=== PATIENT | female | born 1935 | race Caucasian/White ===

== ENCOUNTER 2019-05-19 21:24 | Inpatient (IN) | payer MEDICARE, BC ==
[~2019-05-19] VITALS: Ht 160 cm; Wt 92.0 kg
[2019-05-19 22:10] LABS: BASOPHILS 0.1 % (0-2); EOSINOPHILS 0.9 % (0-7); HEMATOCRIT 32.1 % (36.0-48.0); HEMOGLOBIN 9.7 g/dL (12-16); IMMATURE GRANULOCYTES 0.9 % (0-5); LYMPHOCYTES 10.7 % (15-50); MCH 26.4 pg (26.0-34.0); MCHC 30.2 g/dL (31.0-37.0); MCV 87.5 fL (80.0-100.0); MEAN PLATELET VOLUME 8.3 fL (7.4-10.4); MONOCYTES 7.6 % (2-11); NEUTROPHILS 79.8 % (40-80); PLATELET COUNT 454 10x3/uL (130-400); RBC 3.67 10x6/uL (4.00-5.40); RDW 16.8 % (11.5-14.5); WBC 17.5 10x3/uL (4.8-10.8)
[2019-05-19 22:25] LABS: APTT 29.9 SECONDS (22.8-39.4)
[2019-05-19 22:29] LABS: CALC OSMOLALITY 276 mosm/kg (275-300); CALCIUM 8.8 mg/dL (8.5-10.1); CARBON DIOXIDE 33.5 mmol/L (21.0-32.0); CHLORIDE - SERUM 97 mmol/L (98-107); CREATININE - SERUM 1.6 mg/dL (0.6-1.3); GLUCOSE 104 mg/dL (74-106); POTASSIUM - SERUM 4.3 mmol/L (3.5-5.1); SODIUM 135 mmol/L (136-145); UREA NITROGEN 32 mg/dL (7-18); eGFR NON AFRICAN AMERICAN 32 mL/min (90-120)
[2019-05-19 22:32] LABS: INR 1.01 (0.85-1.17); PROTIME 13.3 SECONDS (11.6-15.0)
[2019-05-19 22:38] LABS: BACTERIA MODERATE /hpf (NEGATIVE); BILIRUBIN NEGATIVE (NEGATIVE); GLUCOSE NEGATIVE (NEGATIVE); KETONE NEGATIVE (NEGATIVE); NITRITE NEGATIVE (NEGATIVE); UROBILINOGEN NORMAL (NORMAL); WHITE CELLS - URINE >50 /hpf (NEGATIVE)
[2019-05-19 22:48] LABS: ALBUMIN 1.5 g/dL (3.4-5.0); ALKALINE PHOSPHATASE 156 U/L (30-120); ALT (SGPT) 52 U/L (10-68); BILIRUBIN - TOTAL 0.26 mg/dL (0.2-1.3); CKMB 0.6 U/L (0.0-3.6); CREATINE KINASE 34 UL (21-215); PROTEIN - SERUM 6.4 g/dL (6.4-8.2)
[2019-05-19 22:51] LABS: TROPONIN-I < 0.017 ng/mL (0.000-0.060)
[2019-05-19] MEDS ORDERED: SYNTHROID25 MCG PO (23:51)
[2019-05-20 00:25] VITALS: BMI 32.4
[2019-05-20 00:26] VITALS: BP 124/67
[2019-05-20 06:00] VITALS: BP 107/47
--- NOTE | 2019-05-20 07:15 | NUR ---
REPORT RECEIVED FROM FLOWER GRADER AND PATIENT CARE ASSUMED. PATIENT LAYING IN BED ON BACK WITH EYES CLOSED AND BREATHING EVENLY. DTR AND SON IN LAW AT BS. DTR STATED THAT SHE IS REALLY GROGGY AND HARD TO WAKE UP. DTR STATES THAT PATIENT WAS AWAKE, ALERT AND ORIENTED LAST PM. ATTEMPTED AT AROUSE PATIENT TO VOICE AND TO STERNAL RUB WITHOUT RESULTS. PULSE OX 78% ON O2 2L NC. INCREASED TO 4L. CALLED RAPID RESPONSE. RESPONSE TEAM IN ROOM WITH IN 30 - 60 SECS. RESPIRATORY ABDULAZIZ ABG'S. DR DOYLE CALLED HE IN BUILDING AND CAME TO ROOM. ORDERED CT HEAD, CXR AND NARCAN INJ. DR DOYLE RECOMMENDED ICU TRANSFER BUT AFTER SPEAKING WITH FAMILY PATIENT IS A MEDICAL CODE ONLY. NARCAN INJ GIVEN IV WITH OUT ANY RESULTS. VSS. PATIENT OS SAT AT 97% ON [address] WILL CONTINUE TO MONITOR. SR UP X 2 BED IN LOW POSITION AND CALL LIGHT IN REACH.
[2019-05-20 07:25] LABS: BASOPHILS 0.1 % (0-2); EOSINOPHILS 1.1 % (0-7); HEMATOCRIT 30.7 % (36.0-48.0); HEMOGLOBIN 9.2 g/dL (12-16); IMMATURE GRANULOCYTES 0.9 % (0-5); LYMPHOCYTES 7.9 % (15-50); MCH 26.4 pg (26.0-34.0); MEAN PLATELET VOLUME 8.5 fL (7.4-10.4); PLATELET COUNT 465 10x3/uL (130-400); RBC 3.49 10x6/uL (4.00-5.40); RDW 17.2 % (11.5-14.5); WBC 16.9 10x3/uL (4.8-10.8)
[2019-05-20 07:32] LABS: ALBUMIN 1.4 g/dL (3.4-5.0); ANION GAP 7.9 mmol/L (8-16); BILIRUBIN - TOTAL 0.18 mg/dL (0.2-1.3); CALCIUM 8.6 mg/dL (8.5-10.1); CARBON DIOXIDE 32.9 mmol/L (21.0-32.0); CREATININE - SERUM 1.6 mg/dL (0.6-1.3); MAGNESIUM - SERUM 2.7 mg/dL (1.8-2.4); PHOSPHOROUS 4.4 mg/dL (2.5-4.9); POTASSIUM - SERUM 4.8 mmol/L (3.5-5.1)
--- NOTE | 2019-05-20 09:30 | NUR ---
PATIENT CONTINUES TO BE SOMNOLENT . AROUSE TO STERNAL RUB MINIMALLY. VSS. O2 SAT 95% @2LNC. AWAINTING CT RESULTS. WILL CONTINUE TO MONTIOR. SR UP X 2 BED IN LOW POSITION AND CALL LIGHT IN REACH.
--- NOTE | 2019-05-20 10:35 | NUR ---
DR FLORES IN ROOM. PATIENT MINIMALLY AROUSES TO VOICE. DR ANTOINE INFORMED FAMILY THAT SHE WILL REVIEW PATIENT RECORD AND RESULTS THEN MAKE ANY NECESSARY ORDERS OR TMTS.
[2019-05-20 11:29] VITALS: BP 127/72
[2019-05-20 12:37] LABS: T4 THYROXIN - FREE 0.57 ng/dL (0.76-1.46); THYROID STIMULATING HORMONE 28.69 uIU/mL (0.36-3.74)
--- NOTE | 2019-05-20 13:15 | NUR ---
PATIENT AROUSES TO VOICE AND STATES THAT SHE IS THIRSTY. PATIENT GIVEN WATER AND SWALLOWS EASILY. PATIENT STATES NOT HUNGRY. WILL CONTINUE TO MONITOR.
--- NOTE | 2019-05-20 14:45 | NUR ---
PATIENT AROUSE TO VOICE AND ASKS FOR WATER. PATIENT DENIES ANY NEEDS OR PAIN. VSS. DTR AT BS. WILL CONTINUE TO MONTIOR.
--- NOTE | 2019-05-20 15:13 | NUR ---
UNABLE TO COLLECT SPUTUM SPECIMEN. PATIENT HAVING RARE, NON-PRODUCTIVE COUGH.
[2019-05-20 15:19] VITALS: BP 117/70
--- NOTE | 2019-05-20 16:25 | NUR ---
PATIENT AROUSES TO VOICE AND OPENS EYES EASILY. PATIENT DENIES ANY PAIN OR NEEDS . VITAL SIGNS STABLE. PATIENT STATES THAT SHE IS NOT HNGRY AND WANTS TO SLEEP. WILL CONTINUE TO MONTITOR. SR UPX 2 BED IN LOW POSITION AND CALL LIGHT IN REACH.
--- NOTE | 2019-05-20 17:15 | NUR ---
PATIENT AROUSES TO VOICE AND OPENS EYES. PATIENT STATES HER FULL NAME IN CLEAR SPEECH. PATIENT ORIENTED TO NAME ONLY. PATIENT STATED THAT THIS NURSES VOICE IS TOO SQEEKY WHEN QUESTIONED IF HUNGRY PATIENT DENIES HUNGER. PATIENT DENIES ANY NEEDS OR PAIN. FAMILY IN ROOM. WILL CONTINUE TO [facility]. SR UPX 2 BED IN LOW POSITION AND CALL LIGHT IN REACH.
--- NOTE | 2019-05-20 17:20 | NUR ---
DR FLORES IN ROOM. INFORMED PATIENT FAMILY THAT SHE WILL REVIEW CT RESULTS AND OTHER RECORDS AND MAY ANY NECESSARY ORDERS OR TREATMENTS.
--- NOTE | 2019-05-20 18:04 | NUR ---
ENTERED PATIENTS ROOM. PATIENT EYES OPEN , PT VERBAL WITH CLEAR SPEECH. PATIENT HAD EATEN ABOUT 25% OF DINNER. PATIENT IS STABLE AND VSS. PATIENT DENIES ANY NEEDS OR PAIN. WILL CONTINUE TO MONITOR. SR UP X 2 BED IN LOW POSITION AND CALL LIGHT IN REACH.
[2019-05-20 20:00] VITALS: BP 106/68
[2019-05-21] VITALS: BP 100/51
--- NOTE | 2019-05-21 02:54 | NUR ---
RT AT BED SIDE, PT REFUSES TO WEAR BIPAP.
[2019-05-21 04:00] VITALS: BP 121/63
[2019-05-21 06:18] LABS: BASOPHILS 0.1 % (0-2); EOSINOPHILS 1.7 % (0-7); HEMATOCRIT 31.8 % (36.0-48.0); HEMOGLOBIN 9.5 g/dL (12-16); IMMATURE GRANULOCYTES 0.8 % (0-5); LYMPHOCYTES 7.9 % (15-50); MCH 26.5 pg (26.0-34.0); MCHC 29.9 g/dL (31.0-37.0); MCV 88.6 fL (80.0-100.0); MEAN PLATELET VOLUME 8.4 fL (7.4-10.4); MONOCYTES 8.4 % (2-11); NEUTROPHILS 81.1 % (40-80); PLATELET COUNT 446 10x3/uL (130-400); RBC 3.59 10x6/uL (4.00-5.40); RDW 17.2 % (11.5-14.5); WBC 18.5 10x3/uL (4.8-10.8)
[2019-05-21 06:41] LABS: % SATURATION 17 % (15-55); IRON 16 ug/dl (35-150); TOTAL IRON BIND CAPACITY 92 ug/dl (260-445); UNSAT IRON BIND CAPACITY 76 ug/dl (150-375)
[2019-05-21 06:50] LABS: ANION GAP 7.7 mmol/L (8-16); CALCIUM 8.6 mg/dL (8.5-10.1); CARBON DIOXIDE 33.1 mmol/L (21.0-32.0); CREATININE - SERUM 1.4 mg/dL (0.6-1.3); MAGNESIUM - SERUM 2.7 mg/dL (1.8-2.4); PHOSPHOROUS 3.4 mg/dL (2.5-4.9); POTASSIUM - SERUM 4.8 mmol/L (3.5-5.1)
--- NOTE | 2019-05-21 07:30 | NUR ---
PT LAYING SUPINE, RR EVEN AND UNLABORED. EASILY AROUSES TO VERBAL STIMULI. DENIES NEEDS OR PAIN AT THIS TIME. CALL LIGHT WITHIN REACH. BED IN LOWEST POSITION. WILL CONTINUE TO MONITOR.
[2019-05-21 10:00] VITALS: BP 116/65
[2019-05-21 13:43] VITALS: Ht 160 cm; Wt 92.0 kg
[2019-05-21 14:04] VITALS: BP 113/57
--- NOTE | 2019-05-21 16:36 | NUR ---
EDUCATED PT ON BIPAP AND DISCUSSED THAT DOCTOR HAD ORDERED ONE FOR SOB AND QHS PT REFUSED, STATING SHE DOES NOT NEED ONE, FAMILY AT BEDSIDE
[2019-05-21 18:03] VITALS: BP 124/67
--- NOTE | 2019-05-21 19:45 | NUR ---
REPORT RECIEVED AND ROUNDING COMPLETE. PATIENT LAYING, IN LOW FOWLERS. PATIENT HAS DAUGHTER AND SON AT BEDSIDE. PATIENT HAS A RIGHT HAND PIV THAT IS RUNNING FLUIDS AT THIS TIME. PIV SHOWS NO S/SX OF INFILTRATION. WEARING NASAL CANNULA WITH O2 AT 3L. PATIENT SHOWS NO S/SX OF DISTRESS AT THIS TIME. CALL LIGHT WITHIN REACH AND BED IN LOWEST LOCKED POSITION.
[2019-05-21 20:30] VITALS: BP 125/65
[2019-05-22 00:30] VITALS: BP 100/63
[2019-05-22 04:30] VITALS: BP 111/60
[2019-05-22 05:32] LABS: BASOPHILS 0.1 % (0-2); EOSINOPHILS 1.1 % (0-7); HEMATOCRIT 31.1 % (36.0-48.0); HEMOGLOBIN 9.2 g/dL (12-16); IMMATURE GRANULOCYTES 0.8 % (0-5); LYMPHOCYTES 8.6 % (15-50); MCH 26.6 pg (26.0-34.0); MCHC 29.6 g/dL (31.0-37.0); MCV 89.9 fL (80.0-100.0); MEAN PLATELET VOLUME 8.5 fL (7.4-10.4); MONOCYTES 8.3 % (2-11); NEUTROPHILS 81.1 % (40-80); PLATELET COUNT 428 10x3/uL (130-400); RBC 3.46 10x6/uL (4.00-5.40); RDW 17.3 % (11.5-14.5); WBC 17.5 10x3/uL (4.8-10.8)
[2019-05-22 05:56] LABS: ANION GAP 6.9 mmol/L (8-16); CALCIUM 8.2 mg/dL (8.5-10.1); CARBON DIOXIDE 32.8 mmol/L (21.0-32.0); CREATININE - SERUM 1.2 mg/dL (0.6-1.3); MAGNESIUM - SERUM 2.6 mg/dL (1.8-2.4); PHOSPHOROUS 3.1 mg/dL (2.5-4.9); POTASSIUM - SERUM 4.7 mmol/L (3.5-5.1)
--- NOTE | 2019-05-22 07:15 | NUR ---
ASSESSMENT DONE. DENIES NEEDS
[2019-05-22 10:46] VITALS: BP 108/60
[2019-05-22 12:09] LABS: ANA REFLEX - DIRECT Negative (Negative)
--- NOTE | 2019-05-22 16:09 | NUR ---
I CONCUR WITH WIND FARM DESIGNER ASSESSMENT OF THIS PATIENT
--- NOTE | 2019-05-22 19:30 | NUR ---
PATIENT LAYING IN BED, SON AND DAUGHTER AT BEDSIDE. BREATHING LABORED AND SHALLOW. PATIENT IS VERY SWOLLEN EVERYWHERE. PATIENT HAS A RIGHT HAND PIV THAT LOOKS TO BE INFILTRATED, WHILE FLUSHING FLUSHING PATIENT COMLAINED OF BURNING. WEARING NASAL CANNULA WITH O2 AT 3L. NO NEEDS AT THIS TIME. WILL TRY FOR PIV. CALL LIGHT WITHIN REACH AND BED IN LOWEST LOCKED POSITION.
[2019-05-22 20:00] VITALS: BP 113/48
--- NOTE | 2019-05-22 22:24 | NUR ---
IV STARTED #22 TO L HAND WITH ATTEMPT X1. PT TOLERATED ACTIVITY WELL.
[2019-05-23] VITALS: BP 111/57
[2019-05-23 04:00] VITALS: BP 109/58
--- NOTE | 2019-05-23 04:14 | NUR ---
I have reviewed this patient and I concur with the Shift Assessment completed by the Licensed Practical Nurse today this shift.
[2019-05-23 06:12] LABS: BASOPHILS 0.1 % (0-2); HEMATOCRIT 30.8 % (36.0-48.0); IMMATURE GRANULOCYTES 1.3 % (0-5); LYMPHOCYTES 8.1 % (15-50); MCH 26.2 pg (26.0-34.0); MCHC 29.2 g/dL (31.0-37.0); MCV 89.8 fL (80.0-100.0); MEAN PLATELET VOLUME 8.7 fL (7.4-10.4); MONOCYTES 7.9 % (2-11); NEUTROPHILS 81.6 % (40-80); PLATELET COUNT 437 10x3/uL (130-400); RBC 3.43 10x6/uL (4.00-5.40); RDW 17.6 % (11.5-14.5); WBC 16.9 10x3/uL (4.8-10.8)
[2019-05-23 06:37] LABS: CALCIUM 8.4 mg/dL (8.5-10.1); CARBON DIOXIDE 31.3 mmol/L (21.0-32.0); CREATININE - SERUM 1.3 mg/dL (0.6-1.3); MAGNESIUM - SERUM 2.6 mg/dL (1.8-2.4); PHOSPHOROUS 2.6 mg/dL (2.5-4.9); POTASSIUM - SERUM 4.3 mmol/L (3.5-5.1)
--- NOTE | 2019-05-23 07:13 | NUR ---
ASSESSMENT DONE. DENIES NEEDS. FAMILY AT SIDE.
--- NOTE | 2019-05-23 17:20 | NUR ---
WITHOUT CHANGES OR DISTRESS NOTED AT THIS TIME. DENIES NEEDS
--- NOTE | 2019-05-23 18:49 | NUR ---
I have reviewed this patient and I concur with the Shift Assessment completed by the Licensed Practical Nurse today this shift.
--- NOTE | 2019-05-23 19:30 | NUR ---
REPORT RECIEVED AND INITIAL ROUNDS COMPLETED. PT RESTING IN BED WITH FAMILY AT BEDSIDE X 2. O2 @ 4L/NC, JUST COMPLETED BREATHING TREATMENT. IV TO RIGHT AND LEFT HAND. DALEY TO BEDSIDE DRAIN BAG. IVF DECREASED TO KVO AT THIS TIME DUE TO DIFFUSE EDEMA. CPOC. PT ROUSABLE/ALERT AND ANSWERS QUESTIONS WHEN ASKED.
[2019-05-23 20:00] VITALS: BP 113/62
[2019-05-24] VITALS: BP 111/70
--- NOTE | 2019-05-24 01:16 | NUR ---
RESTING IN BED WITH NO DISTRESS. FAMILY X 2 AT BEDSIDE. CPOC.
[2019-05-24 04:00] VITALS: BP 119/68
[2019-05-24 05:57] LABS: BASOPHILS 0.2 % (0-2); EOSINOPHILS 1.3 % (0-7); HEMATOCRIT 30.8 % (36.0-48.0); HEMOGLOBIN 9.1 g/dL (12-16); LYMPHOCYTES 8.6 % (15-50); MCH 26.6 pg (26.0-34.0); MCHC 29.5 g/dL (31.0-37.0); MCV 90.1 fL (80.0-100.0); MEAN PLATELET VOLUME 8.5 fL (7.4-10.4); NEUTROPHILS 78.9 % (40-80); PLATELET COUNT 480 10x3/uL (130-400); RBC 3.42 10x6/uL (4.00-5.40); RDW 17.7 % (11.5-14.5); WBC 19.5 10x3/uL (4.8-10.8)
[2019-05-24 06:11] LABS: ANION GAP 8.4 mmol/L (8-16); CALCIUM 8.4 mg/dL (8.5-10.1); CARBON DIOXIDE 32.1 mmol/L (21.0-32.0); CREATININE - SERUM 1.2 mg/dL (0.6-1.3); MAGNESIUM - SERUM 2.6 mg/dL (1.8-2.4); PHOSPHOROUS 3.1 mg/dL (2.5-4.9); POTASSIUM - SERUM 4.5 mmol/L (3.5-5.1)
[2019-05-24 07:30] VITALS: BP 112/54
--- NOTE | 2019-05-24 08:00 | NUR ---
PT A/O X4 BUT CONFUSED AT TIMES. PT BREATHING SHALLOW AND LUNG SOUNDS WET. ANDERSON SANTOYO NOTIFIED WELL . NEW ORDERS ESTABLISHED. BED LOW CALL LIGHT WITHIN REACH. FAMILY AT BEDSIDE. WILL CONTINUE TO MOONITOR. 0900- PT REFUSING TO WEAR O2 OR BIPAP. PT STATES, "IM READY TO DO, LEAVE ME ALONE." DR. STALEY NOTIFIED AND SPOKE WITH PT. AND FAMILY. REFER TO CHART. BED LOW CALL LIGHT WITHIN REACH. WILL CONTINUE TO MONITOR.
--- NOTE | 2019-05-24 14:22 | NUR ---
PT AGREED TO WEAR O2 AT THIS TIME. FAMILY AT BEDSIDE. BED LOW CALL LIGHT WITHIN REACH. WILL CONTINUE TO MONITOR.
[2019-05-24 15:30] VITALS: BP 128/68
--- NOTE | 2019-05-24 15:30 | NUR ---
PT REFUSED TO WEAR BIPAP NURSE PLACED O2 VIA CANNULA..SPO2 95 @ 4LPM ON DEPARTURE....PT RECEIVED DUONEB VIA MASK WITH NO ADVERSE REACTIONS
--- NOTE | 2019-05-24 17:57 | NUR ---
I have reviewed this patient and I concur with the Shift Assessment completed by the Licensed Practical Nurse today this shift.
--- NOTE | 2019-05-24 19:15 | NUR ---
RECEIVED REPORT, WILL ASSUME CARE OF PT, RECEIVING BREATHING TREATMENT AT THIS TIME, DENIES ANY NEEDS, SON AT BEDSIDE, BED IS LOW, SRX3, CALL LIGHT IN REACH, WILL CONTINUE PLAN OF CARE
[2019-05-25 00:01] VITALS: BP 114/63
[2019-05-25 03:06] LABS: IMMUNOGLOBULIN E 51 IU/mL (6-495)
[2019-05-25 05:40] LABS: BASOPHILS 0.1 % (0-2); EOSINOPHILS 1.1 % (0-7); HEMATOCRIT 31.1 % (36.0-48.0); HEMOGLOBIN 9.2 g/dL (12-16); IMMATURE GRANULOCYTES 2.4 % (0-5); LYMPHOCYTES 9.7 % (15-50); MCH 26.6 pg (26.0-34.0); MCHC 29.6 g/dL (31.0-37.0); MCV 89.9 fL (80.0-100.0); MEAN PLATELET VOLUME 8.4 fL (7.4-10.4); MONOCYTES 7.6 % (2-11); NEUTROPHILS 79.1 % (40-80); PLATELET COUNT 391 10x3/uL (130-400); RBC 3.46 10x6/uL (4.00-5.40); RDW 17.8 % (11.5-14.5); WBC 19.1 10x3/uL (4.8-10.8)
[2019-05-25 07:00] LABS: ANION GAP 6.3 mmol/L (8-16); CALCIUM 8.6 mg/dL (8.5-10.1); CARBON DIOXIDE 32.9 mmol/L (21.0-32.0); MAGNESIUM - SERUM 2.5 mg/dL (1.8-2.4); PHOSPHOROUS 3.1 mg/dL (2.5-4.9); POTASSIUM - SERUM 4.2 mmol/L (3.5-5.1)
[2019-05-25 07:08] LABS: CREATININE - SERUM 1.6 mg/dL (0.6-1.3)
--- NOTE | 2019-05-25 07:10 | NUR ---
PT RECEIVED LAYING IN BED SLEEPING. AROUSED TO TOUCH BUT BACK TO SLEEP EASILY. UNABLE TO ASSESS ORIENTATION.
[2019-05-25 09:52] VITALS: BP 121/59
[2019-05-25 12:32] LABS: BILIRUBIN NEGATIVE (NEGATIVE); GLUCOSE NEGATIVE (NEGATIVE); KETONE NEGATIVE (NEGATIVE); NITRITE NEGATIVE (NEGATIVE); RED CELLS - URINE RARE /hpf (0-5); UROBILINOGEN NORMAL (NORMAL); WHITE CELLS - URINE OCC /hpf (NEGATIVE)
[2019-05-25 12:33] LABS: AMORPHOUS SEDIMENT <1+ /lpf (NONE SEEN); BACTERIA FEW /hpf (NEGATIVE); EPITHELIAL CELLS RARE /hpf (0-5); GRANULAR CAST OCC /lpf (NONE SEEN)
[2019-05-25 13:58] VITALS: BP 111/67
--- NOTE | 2019-05-25 14:26 | NUR ---
Nutrition Follow-up: Pt sleeping soundly at time of visit this AM and would not wake with family's prompting. Family reports she ate poorly this AM. Noted hospice consult. Diet: Cardiac, Boost TID PO intake: 25-50% Wt: 200# (05/23); 198.4# (05/20) Labs noted: Mg 2.5 Meds noted: Protonix, NS @ 30 -Encourage PO intake and honor food preferences within diet restrictions. -Monitor wt; noted daily wts ordered. -RD following.
--- NOTE | 2019-05-25 15:15 | MORECARE ---
CASE MANAGEMENT DISCHARGE SUMMARY PATIENT: ALEXANDRO TOMLINSON UNIT: [id number] ADM DATE: 05/19/19 AGE: 83 : 34 SEX: F ROOM/BED: D.2128 AUTHOR: JIM RITCHIE PHYSICIAN: REFERRING PHYSICIAN: KI DOYLE MD DATE OF SERVICE: 05/25/19 Discharge Plan Patient Name: ALEXANDRO TOMLINSON Facility: [facility] : 1935 Planned Disposition: Inpatient Rehab Anticipated Discharge Date: Discharge Date: Expected LOS: Initial Reviewer: [id number] Initial Review Date: 05/25/2019 Generated: 05/25/19 4:14 pm Patient Name: ALEXANDRO TOMLINSON Page [phone] at 1515 All edits/amendments must be made on the electronic document DICTATION DATE: 05/25/19 1514 ENGRAVER SEALS: GAMALIEL 05/25/19 1514 RPT#: [id number] DC DATE: STATUS: ADM IN [facility] [address] [place] [address] END OF REPORT
--- NOTE | 2019-05-25 15:27 | MORECARE ---
CASE MANAGEMENT DISCHARGE SUMMARY PATIENT: ALEXANDRO TOMLINSON UNIT: [id number] ADM DATE: 05/19/19 AGE: 83 : 34 SEX: F ROOM/BED: D.6512 AUTHOR: JIM RITCHIE PHYSICIAN: REFERRING PHYSICIAN: KI DOYLE MD DATE OF SERVICE: 05/25/19 Discharge Plan Patient Name: ALEXANDRO TOMLINSON Facility: [facility]:[place] : 1935 Planned Disposition: Inpatient Rehab Anticipated Discharge Date: Discharge Date: Expected LOS: Initial Reviewer: [email or web address] Initial Review Date: 05/25/2019 Generated: 05/25/19 4:27 pm Comments DCP- Discharge Planning Updated by [email or web address]: Roscoe Rivera on 05/25/19 2:[address] Patient Name: ALEXANDRO TOMLINSON Admission Status: ER Accout number: [id number] Admission Date: 05-19-2019 : 1935 Admission Diagnosis: Attending: KATIE DOYLE Current LOS: 6 Anticipated DC Date: Planned Disposition: Inpatient Rehab Primary Insurance: MEDICARE A & B PLANNED EXTERNAL PROVIDER: [place] [facility] Discharge Planning Comments: CM RECEIVED HOSPICE ORDER, MET WITH PT AND DAUGHTER IN ROOM TO DISCUSS DISCHARGE PLANNING AND NEEDS. PT HAVING BOWEL MOVEMENT, DAUGHTER ASKED TO SPEAK OUTSIDE ROOM. PT HAS BEEN LIVING AT HOME INDEPENDENTLY AND ALONE NEXT DOOR TO DAUGHTER. PT HAS NOT BEEN USING ANY MEDICAL EQUIPMENT. PT TAKES NO HOME MEDICATIONS. CM DISCUSSED PT'S NON COMPLIANCE WITH OXYGEN AND BIPAP AND ALSO DISCUSSED HOSPICE OPTIONS, LOCATIONS AND PROVIDERS. PT'S DAUGHTER REPORTS THAT SHE DOES NOT THINK THEY ARE READY FOR HOSPICE AND THAT SHE BELIEVES PT WILL GET BETTER AND MAY NEED REHAB. CM PROVIDED HOSPICE INFORMATION. PT'S DAUGHTER INFORMED CM THAT THEY ARE GOING TO TRY THE BIPAP AGAIN AND THAT PT IS JUST WANTING TO SLEEP NOW BUT IS RESPONDING VERBALLY TO THEM. CM DISCUSSED AVAILABILITY OF HOME HEALTH, REHAB SERVICES AND MEDICAL EQUIPMENT. PT'S DAUGHER IS THINKING OF REHAB AT [facility]; CM EXPLAINED THAT PT WILL NEED TO BE ABLE TO PARTICIPATE IN THREE HOURS OF PROGRESSIVE THERAPY FROM DAY OF ADMIT, SHE FEELS THAT PT WILL RECOVER AND BE ABLE TO DO SO. SECOND CHOICE IS [facility]. FAMILY PLANS TO TRANSPORT PT TO INPATIENT REHAB. CHOICE SIGNED FOR INPATIENT REHAB AT [facility]. REFUSAL FOR HOSPICE SIGNED. FAMILY IS NOT READY FOR HOSPICE AND FEELS THAT PT WILL COOPERATE WITH BIPAP, RECOVER AND BE ABLE TO GO TO INPATIENT REHAB OR INTERMEDIATE REHAB IN [place]. CM TO CONTINUE TO FOLLOW AND ASSIST NEEDED. Community Services Coordinator: Roscoe Rivera DCPIA - Discharge Planning Initial Assessment Updated by [id number]: Roscoe Rivera on 05/25/19 3:15 pm * Is the patient Alert and Oriented? Yes * How many steps to enter\exit or inside your home? * PCP DR. ROSENBAUM * Pharmacy [facility] * Preadmission Environment Home Alone * ADLs Independent * Equipment None * Other Equipment [facility] - PROVIDER PREFERENCE * List name and contact numbers for known caregivers / representatives who currently or will assist patient after discharge: SILVIANO VINCENTFÉLIX VELASCO, * Verbal permission to speak to the caregivers and representatives has been obtained from the patient. N/A * Community resources currently utilized None * Please name any agencies selected above. NONE * Additional services required to return to the preadmission environment? Yes * Can the patient safely return to the preadmission environment? Yes * Has this patient been hospitalized within the prior 30 days at any hospital? No Coverage Notice Reviewer: [id number] - Roscoe Rivera Notice Issued Date-Time: 05/25/2019 14:35 Notice Type: Patient Choice Letter Notice Delivered To: Family Member Relationship to Patient: Daughter Civil Estimator Name: SILVIANO UNDERWOOD Delivery Method: HAND - Hand Delivered Emerald Days: Prior Verbal Notification: Recipient Understood Notice: Yes Recipient Signature: Yes Med Rec Note Co-signed by Attending: Coverage Notice Comment: [facility] OR PENDING SALE TO [facility] REFUSED: HOSPICE Last DP export: 05/25/19 2:15 pm Patient Name: ALEXANDRO TOMLINSON Page 48050 at 1527 All edits/amendments must be made on the electronic document DICTATION DATE: 05/25/191526 AUTOMOTIVE ELECTRICIAN: GAMALIEL 05/25/191526 RPT#: [id number] DC DATE: STATUS: ADM IN [facility] [address] [place] [address] END OF REPORT
[2019-05-25 17:40] VITALS: BP 97/50
--- NOTE | 2019-05-25 19:10 | NUR ---
EVENING ROUDNS COMPLETE. PT SITTING UP IN BED. NO SIGNS OF DISTRESS. FAMILY AT BEDSIDE. PT AROUSES TO VOICE. PT DENIES ANY PAIN OR NEEDS AT THIS TIME. CL IN REACH, BED IN LOWEST POSITION.
[2019-05-25 22:23] VITALS: BP 110/60
[2019-05-26 00:48] VITALS: BP 111/59
[2019-05-26 05:22] VITALS: BP 112/50
--- NOTE | 2019-05-26 07:05 | NUR ---
Lacy AND THIS NURSE TRIED TO PLACE PT ON BIPAP. PT REFUSED.
--- NOTE | 2019-05-26 10:00 | NUR ---
ROUNDING DONE WITH DR. BAPTISTE AND HE STATES TO PLACE PT ON BIPAP. FAMILY STATES TO DR. BAPTISTE SHE WILL DO ANYTHING OLENA SALDANA WANTS. DR. BAPTISTE STATES TO GET OLENA IN ROOM AND PLACE PT ON BIPAP. THIS NURSE WITH OLENA SALDANA AT BEDSIDE TRIED TO PLACE PT ON BIPAP. PT REFUSED. WILL CONTINUE TO MONITOR.
--- NOTE | 2019-05-26 10:24 | NUR ---
LEFT HAND 22G IV INFILTRATED. DC'D WITH CATH INTACT.
--- NOTE | 2019-05-26 10:42 | NUR ---
FAMILY STATES TOLD THEM YESTERDAY PT WAS GOING TO GET BETTER AND DOES NOT NEED HOSPICE. STATED THIS TO ADORE HOANG AND SHE STATES HER AND DR. CHEUNG WILL HAVE A CONVERSATION WITH THE FAMILY. I VERBALIZED UNDERSTANDING. I ALSO STATED TO HER PT IS NPO PER S.T. RECOMENDATIOSN FOR ASPIRATION AND FAMILY IS NOT WANTING HER TO BE NPO AND I STATED TO THEM THEY HAVE TO SPEAK WITH THE DOCTOR ABOUT THAT. ADORE HOANG STATES SHE WILL ALSO ADDRESS THIS WITH FAMILY. I VERBALIZED UNDERSTANDING.
[2019-05-26 11:02] VITALS: BP 129/61
--- NOTE | 2019-05-26 11:58 | NUR ---
INSERTED RIGHT WRIST 22G IV ON THIRD ATTEMPT.
[2019-05-26 12:09] LABS: CA 27-29 13.5 U/mL (0.0-38.6); CEA 2.1 ng/mL (0.0-4.7)
--- NOTE | 2019-05-26 13:47 | MORECARE ---
CASE MANAGEMENT DISCHARGE SUMMARY PATIENT: ALEXANDRO TOMLINSON UNIT: [id number] ADM DATE: 05/19/19 AGE: 83 : 34 SEX: F ROOM/BED: D.9293 AUTHOR: CHAU,DOC PHYSICIAN: REFERRING PHYSICIAN: KI DOYLE MD DATE OF SERVICE: 05/26/19 Discharge Plan Patient Name: ALEXANDRO TOMLINSON [facility] [facility] 1935 Planned Disposition: Hospice Medical Facility Anticipated Discharge Date: 05/26/19 Discharge Date: Expected LOS: 7 Initial Reviewer: [id number] Initial Review Date: 05/25/2019 Generated: 05/26/19 2:47 pm Comments DCP- Discharge Planning Updated by [email or web address]: Roscoe Rivera on 05/26/19 12:[address] Patient Name: ALEXANDRO TOMLINSON Encounter No: [id number] : 1935 Primary Insurance: MEDICARE A & B Anticipated DC Date: 05-26-2019 Planned Disposition: Hospice Medical Facility External Planned Provider: [facility] DCP follow-up note: CM RECEIVED HOSPICE ORDER, SPOKE TO PT'S DAUGHTER, SILVIANO, WHO HAS SPOKEN WITH ANDERSON REGALADO AND IS IN AGREEMENT WITH HOSPICE. PROVIDERS OF HOSPICE, LOCATIONS OF HOSPICE AND SERVICES DISCUSSED. SILVIANO WOULD LIKE TO KEEP PT AT [place] FOR HOSPICE IF POSSIBLE. CHOICE SIGNED. IMPORTANT MESSAGE FROM MEDICARE PROVIDED AND EXPLAINED. CM CALLED [facility], , PROVIDED REFERRAL TO [facility] WHO WILL SEND NURSE OUT TO EVALUATE PT SHORTLY FOR INPATIENT HOSPICE. CM FAXED REFERRAL TO [facility] AT [phone]. CM WAITING HOSPICE EVALUATION FOR INPATIENT HOSPICE BY [facility]. Roscoe Rivera, CASE MANAGEMENT DCP- Discharge Planning Updated by [id number]: Roscoe Rivera on 05/25/19 2:[address] Patient Name: ALEXANDRO TOMLINSON Admission Status: ER Accout number: [id number] Admission Date: 05-19-2019 : 1935 Admission Diagnosis: Attending: KATIE DOYLE Current LOS: 6 Anticipated DC Date: Planned Disposition: Inpatient Rehab Primary Insurance: MEDICARE A & B PLANNED EXTERNAL PROVIDER: [facility] Discharge Planning Comments: CM RECEIVED HOSPICE ORDER, MET WITH PT AND DAUGHTER IN ROOM TO DISCUSS DISCHARGE PLANNING AND NEEDS. PT HAVING BOWEL MOVEMENT, DAUGHTER ASKED TO SPEAK OUTSIDE ROOM. PT HAS BEEN LIVING AT HOME INDEPENDENTLY AND ALONE NEXT DOOR TO DAUGHTER. PT HAS NOT BEEN USING ANY MEDICAL EQUIPMENT. PT TAKES NO HOME MEDICATIONS. CM DISCUSSED PT'S NON COMPLIANCE WITH OXYGEN AND BIPAP AND ALSO DISCUSSED HOSPICE OPTIONS, LOCATIONS AND PROVIDERS. PT'S DAUGHTER REPORTS THAT SHE DOES NOT THINK THEY ARE READY FOR HOSPICE AND THAT SHE BELIEVES PT WILL GET BETTER AND MAY NEED REHAB. CM PROVIDED HOSPICE INFORMATION. PT'S DAUGHTER INFORMED CM THAT THEY ARE GOING TO TRY THE BIPAP AGAIN AND THAT PT IS JUST WANTING TO SLEEP NOW BUT IS RESPONDING VERBALLY TO THEM. CM DISCUSSED AVAILABILITY OF HOME HEALTH, REHAB SERVICES AND MEDICAL EQUIPMENT. PT'S DAUGHER IS THINKING OF REHAB AT [facility]; CM EXPLAINED THAT PT WILL NEED TO BE ABLE TO PARTICIPATE IN THREE HOURS OF PROGRESSIVE THERAPY FROM DAY OF ADMIT, SHE FEELS THAT PT WILL RECOVER AND BE ABLE TO DO SO. SECOND CHOICE IS [facility]. FAMILY PLANS TO TRANSPORT PT TO INPATIENT REHAB. CHOICE SIGNED FOR INPATIENT REHAB AT [facility]. REFUSAL FOR HOSPICE SIGNED. FAMILY IS NOT READY FOR HOSPICE AND FEELS THAT PT WILL COOPERATE WITH BIPAP, RECOVER AND BE ABLE TO GO TO INPATIENT REHAB OR HALF-WAY REHAB IN [place]. CM TO CONTINUE TO FOLLOW AND ASSIST NEEDED. Color Developer: Roscoe Rivera COPIA - Discharge Planning Initial Assessment Updated by [id number]: Roscoe Rivera on 05/25/19 3:15 pm * Is the patient Alert and Oriented? Yes * How many steps to enter\exit or inside your home? * PCP DR. ROSENBAUM * Pharmacy [facility] * Preadmission Environment Home Alone * ADLs Independent * Equipment None * Other Equipment [facility] - PROVIDER PREFERENCE * List name and contact numbers for known caregivers / representatives who currently or will assist patient after discharge: SILVIANO UNDERWOOD DTR, * Verbal permission to speak to the caregivers and representatives has been obtained from the patient. N/A * Community resources currently utilized None * Please name any agencies selected above. NONE * Additional services required to return to the preadmission environment? Yes * Can the patient safely return to the preadmission environment? Yes * Has this patient been hospitalized within the prior 30 days at any hospital? No External Providers [facility] Next Contact Date: 05/26/2019 Service Request Date: Service Type: Resolution: Reviewer: Comments: Coverage Notice Reviewer: [id number] Jose Rivera Notice Issued Date-Time: 05/25/2019 14:35 Notice Type: Patient Choice Letter Notice Delivered To: Family Member Relationship to Patient: Daughter Appian Bpm Developer Name: SILVIANO UNDERWOOD Delivery Method: HAND - Hand Delivered Emerald Days: Prior Verbal Notification: Recipient Understood Notice: Yes Recipient Signature: Yes Med Rec Note Co-signed by Attending: Coverage Notice Comment: [facility] REFUSED: HOSPICE Last DP export: 05/25/19 2:27 pm Patient Name: ALEXANDRO TOMLINSON Page [phone] at 1347 All edits/amendments must be made on the electronic document DICTATION DATE: 05/26/19 1347 BOTTLE FEEDER: GAMALIEL 05/26/19 1347 RPT#: [id number] DC DATE: STATUS: ADM IN [facility] [address] [place] [address] END OF REPORT
--- NOTE | 2019-05-26 15:54 | NUR ---
I have reviewed this patient and I concur with the Shift Assessment completed by the Licensed Practical Nurse today this shift.
[2019-05-26 16:00] VITALS: BP 128/60
--- NOTE | 2019-05-26 16:55 | MORECARE ---
CASE MANAGEMENT DISCHARGE SUMMARY PATIENT: ALEXANDRO TOMLINSON UNIT: [id number] ADM DATE: 05/19/19 AGE: 83 : 34 SEX: F ROOM/BED: D.9082 AUTHOR: CHAUDOC PHYSICIAN: REFERRING PHYSICIAN: KI DOYLE MD DATE OF SERVICE: 05/26/19 Discharge Plan Patient Name: ALEXANDRO TOMLINSON Facility: [facility]:[place] : 1935 Planned Disposition: Hospice Medical Facility Anticipated Discharge Date: 05/26/19 Discharge Date: Expected LOS: 7 Initial Reviewer: [id number] Initial Review Date: 05/25/2019 Generated: 05/26/19 5:55 pm DCP- Discharge Planning Updated by [email or web address]: Roscoe Gallego on 05/26/19 3:[address] Patient Name: ALEXANDRO TOMLINSON Encounter No: [id number] : 1935 Primary Insurance: MEDICARE A & B Anticipated DC Date: 05-26-2019 Planned Disposition: Hospice Medical Facility External Planned Provider: [facility] DCP follow-up note: CM RECEIVED HOSPICE ORDER, SPOKE TO PT'S DAUGHTER, SILVIANO, WHO HAS SPOKEN WITH ANDERSON REGALDAO AND IS IN AGREEMENT WITH HOSPICE. PROVIDERS OF HOSPICE, LOCATIONS OF HOSPICE AND SERVICES DISCUSSED. SILVIANO WOULD LIKE TO KEEP PT AT [place] FOR HOSPICE IF POSSIBLE. CHOICE SIGNED. IMPORTANT MESSAGE FROM MEDICARE PROVIDED AND EXPLAINED. CM CALLED [facility], , PROVIDED REFERRAL TO [facility] WHO WILL SEND NURSE OUT TO EVALUATE PT SHORTLY FOR INPATIENT HOSPICE. [facility] AT [phone]. CM WAITING HOSPICE EVALUATION FOR INPATIENT HOSPICE BY [facility]. Roscoe Gallego, CASE MANAGEMENT Appended by Roscoe Gallego on 05/26/2019 16:54 CDT: CM SPOKE TO NURSE CRAIG OF [facility], SHE HAS EVALUATED PT AND FOUND THAT PT IS NOT APPROPRIATE FOR INPATIENT HOSPICE AFTER CONSULTATION WITH DR. DURÁN. THEY WOULD BE ABLE TO ADMIT AT HOME OR [facility]. KIARA ASKED THAT [facility] BE RECONSUILTED FOR INPATIENT HOSPICE IF THERE IS A DECLINE IN PATIENTS CONDITION. PT'S DAUGHTER NOT HERE, CM TO FOLLOW UP WITH PT'S DAUGHTER SOON POSSIBLE REGARDING POSSIBLE [facility] PLACEMENT WITH HOSPICE. ROSCOE GALLEGO, CASE MANAGEMENT DCP- Discharge Planning Updated by [id number]: Roscoe Gallego on 05/25/19 2:[address] Patient Name: ALEXANDRO TOMLINSON Admission Status: ER Accout number: [id number] Admission Date: 05-19-2019 : 1935 Admission Diagnosis: Attending: KATIE DOYLE Current LOS: 6 Anticipated DC Date: Planned Disposition: Inpatient Rehab Primary Insurance: MEDICARE A & B PLANNED EXTERNAL PROVIDER: [facility] [facility] Discharge Planning Comments: CM RECEIVED HOSPICE ORDER, MET WITH PT AND DAUGHTER IN ROOM TO DISCUSS DISCHARGE PLANNING AND NEEDS. PT HAVING BOWEL MOVEMENT, DAUGHTER ASKED TO SPEAK OUTSIDE ROOM. PT HAS BEEN LIVING AT HOME INDEPENDENTLY AND ALONE NEXT DOOR TO DAUGHTER. PT HAS NOT BEEN USING ANY MEDICAL EQUIPMENT. PT TAKES NO HOME MEDICATIONS. CM DISCUSSED PT'S NON COMPLIANCE WITH OXYGEN AND BIPAP AND ALSO DISCUSSED HOSPICE OPTIONS, LOCATIONS AND PROVIDERS. PT'S DAUGHTER REPORTS THAT SHE DOES NOT THINK THEY ARE READY FOR HOSPICE AND THAT SHE BELIEVES PT WILL GET BETTER AND MAY NEED REHAB. CM PROVIDED HOSPICE INFORMATION. PT'S DAUGHTER INFORMED CM THAT THEY ARE GOING TO TRY THE BIPAP AGAIN AND THAT PT IS JUST WANTING TO SLEEP NOW BUT IS RESPONDING VERBALLY TO THEM. CM DISCUSSED AVAILABILITY OF HOME HEALTH, REHAB SERVICES AND MEDICAL EQUIPMENT. PT'S DAUGHER IS THINKING OF REHAB AT [facility]; CM EXPLAINED THAT PT WILL NEED TO BE ABLE TO PARTICIPATE IN THREE HOURS OF PROGRESSIVE THERAPY FROM DAY OF ADMIT, SHE FEELS THAT PT WILL RECOVER AND BE ABLE TO DO SO. SECOND CHOICE IS [facility]. FAMILY PLANS TO TRANSPORT PT TO INPATIENT REHAB. CHOICE SIGNED FOR INPATIENT REHAB AT [facility]. REFUSAL FOR HOSPICE SIGNED. FAMILY IS NOT READY FOR HOSPICE AND FEELS THAT PT WILL COOPERATE WITH BIPAP, RECOVER AND BE ABLE TO GO TO INPATIENT REHAB OR LONG TERM REHAB IN [place]. CM TO CONTINUE TO FOLLOW AND ASSIST NEEDED. Automatic Spinning Lathe Setter: Roscoe Gallego DCPIA - Discharge Planning Initial Assessment Updated by [id number]: Roscoe Gallego on 05/25/19 3:15 pm * Is the patient Alert and Oriented? Yes * How many steps to enter\exit or inside your home? * PCP DR. ROSENBAUM * Pharmacy [facility] * Preadmission Environment Home Alone * ADLs Independent * Equipment None * Other Equipment [employer] - PROVIDER PREFERENCE * List name and contact numbers for known caregivers / representatives who currently or will assist patient after discharge: SILVIANO UNDERWOOD, DTR, * Verbal permission to speak to the caregivers and representatives has been obtained from the patient. N/A * Community resources currently utilized None * Please name any agencies selected above. NONE * Additional services required to return to the preadmission environment? Yes * Can the patient safely return to the preadmission environment? Yes * Has this patient been hospitalized within the prior 30 days at any hospital? No Coverage Notice Reviewer: [id number] Gallego Notice Issued Date-Time: 05/25/2019 14:35 Notice Type: Patient Choice Letter Notice Delivered To: Family Member Relationship to Patient: Daughter Guest Experience Specialist Name: SILVIANO UNDERWOOD Delivery Method: HAND - Hand Delivered Emerald Days: Prior Verbal Notification: Recipient Understood Notice: Yes Recipient Signature: Yes Med Rec Note Co-signed by Attending: Coverage Notice Comment: [facility] OR [facility] REFUSED: HOSPICE Reviewer: HARI Gallego Notice Issued Date-Time: 05/26/2019 13:05 Notice Type: Patient Choice Letter Notice Delivered To: Family Member Relationship to Patient: Daughter Guest Experience Specialist Name: SILVIANO UNDERWOOD Delivery Method: HAND - Hand Delivered Emerald Days: Prior Verbal Notification: Recipient Understood Notice: Yes Recipient Signature: Yes Med Rec Note Co-signed by Attending: Coverage Notice Comment: [facility] Last DP export: 05/26/19 12:48 p Patient Name: ALEXANDRO TOMLINSON Page 11290 at 1655 All edits/amendments must be made on the electronic document DICTATION DATE: 05/26/191654 POWERED BRIDGE SPECIALIST: GAMALIEL 05/26/191654 RPT#: [id number] DC DATE: STATUS: ADM IN [facility] [address] [place] [address] END OF REPORT
--- NOTE | 2019-05-26 16:57 | NUR ---
RIGHT WRIST 22G IV INFILTRATED. DC'D WITH CATH INTACT.
--- NOTE | 2019-05-26 17:02 | NUR ---
LEFT WRIST 20G IV INSERTED ON FIRT ATTEMPT.
[2019-05-26 18:08] LABS: FUNGAL - ASP FLAVUS Negative (Neg:<1:1); FUNGAL - ASP NIGER Negative (Neg:<1:1); FUNGAL - ASPER FUMIGATUS Negative (Neg:<1:1)
--- NOTE | 2019-05-26 20:00 | NUR ---
PT. IN BED, EYES CLOSED, RESP EVEN AND UNLABORED. NO DISTRESS NOTED, IV INFUSING TO LEFT WRIST, NO REDNESS OR SWELLING NOTED TO SITE. O2@6L/NC.
[2019-05-26 22:02] VITALS: BP 119/66
[2019-05-27 01:14] VITALS: BP 144/72
--- NOTE | 2019-05-27 01:38 | NUR ---
I have reviewed this patient and I concur with the Shift Assessment completed by the Licensed Practical Nurse today this shift.
[2019-05-27 06:51] VITALS: BP 135/73
[2019-05-27 09:11] LABS: ALBUMIN 1.2 g/dL (3.4-5.0); ANION GAP 10.3 mmol/L (8-16); BILIRUBIN - TOTAL 0.29 mg/dL (0.2-1.3); CALCIUM 8.6 mg/dL (8.5-10.1); CARBON DIOXIDE 29.3 mmol/L (21.0-32.0); CREATININE - SERUM 1.6 mg/dL (0.6-1.3); POTASSIUM - SERUM 4.6 mmol/L (3.5-5.1); PROTEIN - SERUM 5.1 g/dL (6.4-8.2)
[2019-05-27 10:11] LABS: HEMATOCRIT 30.9 % (36.0-48.0); HEMOGLOBIN 9.1 g/dL (12-16); MCH 26.5 pg (26.0-34.0); MCHC 29.4 g/dL (31.0-37.0); MCV 89.8 fL (80.0-100.0); MEAN PLATELET VOLUME 8.6 fL (7.4-10.4); PLATELET COUNT 462 10x3/uL (130-400); RBC 3.44 10x6/uL (4.00-5.40); RDW 18.7 % (11.5-14.5); WBC 20.1 10x3/uL (4.8-10.8)
[2019-05-27 11:25] VITALS: BP 159/77
[2019-05-27 12:46] LABS: EOSINOPHILS 2 % (0-7); LYMPHOCYTES 14 % (15-50); MONOCYTES 10 % (2-11); NEUTROPHILS 70 % (40-80); PLATELET ESTIMATE INCREASED; ROULEAUX OCC
[2019-05-27 14:26] VITALS: BP 119/59
--- NOTE | 2019-05-27 14:31 | NUR ---
Nutrition Follow-up: Per ST, pt should be NPO with alternate source of nutrition considered. Noted possible hospice. Diet: NPO Wt: 205# (05/25); 200# (05/23) Labs noted: Mg 2.5 Meds noted: Protonix -RD available to assist with nutrition support if medically indicated and/or desired. -Monitor wt; noted daily wts ordered. -RD following.
--- NOTE | 2019-05-27 16:40 | MORECARE ---
CASE MANAGEMENT DISCHARGE SUMMARY PATIENT: ALEXANDRO TOMLINSON UNIT: [id number] ADM DATE: 05/19/19 AGE: 83 : 34 SEX: F ROOM/BED: D.4410 AUTHOR: CHAUDOC PHYSICIAN: REFERRING PHYSICIAN: KI DOYLE MD DATE OF SERVICE: 05/27/19 Discharge Plan Patient Name: ALEXANDRO TOMLINSON Facility: [facility]:[place] : 1935 Planned Disposition: Hospice Medical Facility Anticipated Discharge Date: 05/27/19 Discharge Date: Expected LOS: 8 Initial Reviewer: [id number] Initial Review Date: 05/25/2019 Generated: 05/27/19 5:39 pm DCP- Discharge Planning Updated by [id number]: Roscoe Gallego on 05/26/19 3:[address] Patient Name: ALEXANDRO TOMLINSON Encounter No: [id number] : 1935 Primary Insurance: MEDICARE A & B Anticipated DC Date: 05-26-2019 Planned Disposition: Hospice Medical Facility External Planned Provider: [facility] DCP follow-up note: CM RECEIVED HOSPICE ORDER, SPOKE TO PT'S DAUGHTER, SILVIANO, WHO HAS SPOKEN WITH ANDERSON REGALADO AND IS IN AGREEMENT WITH HOSPICE. PROVIDERS OF HOSPICE, LOCATIONS OF HOSPICE AND SERVICES DISCUSSED. SILVIANO WOULD LIKE TO KEEP PT AT [place] FOR HOSPICE IF POSSIBLE. CHOICE SIGNED. IMPORTANT MESSAGE FROM MEDICARE PROVIDED AND EXPLAINED. CM CALLED [facility], , PROVIDED REFERRAL TO [facility] WHO WILL SEND NURSE OUT TO EVALUATE PT SHORTLY FOR INPATIENT HOSPICE. CM [facility] AT [phone]. CM WAITING HOSPICE EVALUATION FOR INPATIENT HOSPICE BY [facility]. Roscoe Gallego, CASE MANAGEMENT Appended by Roscoe Gallego on 05/26/2019 16:54 CDT: CM SPOKE TO NURSE CRAIG OF [facility], SHE HAS EVALUATED PT AND FOUND THAT PT IS NOT APPROPRIATE FOR INPATIENT HOSPICE AFTER CONSULTATION WITH DR. DURÁN. THEY WOULD BE ABLE TO ADMIT AT HOME OR [facility]. KIARA ASKED THAT [facility] BE RECONSUILTED FOR INPATIENT HOSPICE IF THERE IS A DECLINE IN PATIENTS CONDITION. PT'S DAUGHTER NOT HERE, CM TO FOLLOW UP WITH PT'S DAUGHTER SOON POSSIBLE REGARDING POSSIBLE [facility] PLACEMENT WITH HOSPICE. ROSCOE GALLEGO, CASE MANAGEMENT DCP- Discharge Planning Updated by [id number]: Roscoe Gallego on 05/25/19 2:[address] Patient Name: ALEXANDRO TOMLINSON Admission Status: ER Accout number: [id number] Admission Date: 05-19-2019 : 1935 Admission Diagnosis: Attending: KATIE DOYLE Current LOS: 6 Anticipated DC Date: Planned Disposition: Inpatient Rehab Primary Insurance: MEDICARE A & B PLANNED EXTERNAL PROVIDER: [facility] Discharge Planning Comments: CM RECEIVED HOSPICE ORDER, MET WITH PT AND DAUGHTER IN ROOM TO DISCUSS DISCHARGE PLANNING AND NEEDS. PT HAVING BOWEL MOVEMENT, DAUGHTER ASKED TO SPEAK OUTSIDE ROOM. PT HAS BEEN LIVING AT HOME INDEPENDENTLY AND ALONE NEXT DOOR TO DAUGHTER. PT HAS NOT BEEN USING ANY MEDICAL EQUIPMENT. PT TAKES NO HOME MEDICATIONS. CM DISCUSSED PT'S NON COMPLIANCE WITH OXYGEN AND BIPAP AND ALSO DISCUSSED HOSPICE OPTIONS, LOCATIONS AND PROVIDERS. PT'S DAUGHTER REPORTS THAT SHE DOES NOT THINK THEY ARE READY FOR HOSPICE AND THAT SHE BELIEVES PT WILL GET BETTER AND MAY NEED REHAB. CM PROVIDED HOSPICE INFORMATION. PT'S DAUGHTER INFORMED CM THAT THEY ARE GOING TO TRY THE BIPAP AGAIN AND THAT PT IS JUST WANTING TO SLEEP NOW BUT IS RESPONDING VERBALLY TO THEM. CM DISCUSSED AVAILABILITY OF HOME HEALTH, REHAB SERVICES AND MEDICAL EQUIPMENT. PT'S DAUGHER IS THINKING OF [facility]; CM EXPLAINED THAT PT WILL NEED TO BE ABLE TO PARTICIPATE IN THREE HOURS OF PROGRESSIVE THERAPY FROM DAY OF ADMIT, SHE FEELS THAT PT WILL RECOVER AND BE ABLE TO DO SO. SECOND CHOICE IS [facility]. FAMILY PLANS TO TRANSPORT PT TO INPATIENT REHAB. CHOICE SIGNED FOR INPATIENT REHAB AT [facility]. REFUSAL FOR HOSPICE SIGNED. FAMILY IS NOT READY FOR HOSPICE AND FEELS THAT PT WILL COOPERATE WITH BIPAP, RECOVER AND BE ABLE TO GO TO INPATIENT REHAB OR [facility] IN [place]. CM TO CONTINUE TO FOLLOW AND ASSIST NEEDED. Retail Coverage Merchandiser Lead: Roscoe Gallego DCPIA - Discharge Planning Initial Assessment Updated by [email or web address]: Roscoe Gallego on 05/25/19 3:15 pm * Is the patient Alert and Oriented? Yes * How many steps to enter\exit or inside your home? * PCP DR. ROSENBAUM * Pharmacy [facility] * Preadmission Environment Home Alone * ADLs Independent * Equipment None * Other Equipment [employer] - PROVIDER PREFERENCE * List name and contact numbers for known caregivers / representatives who currently or will assist patient after discharge: SILVIANO UNDERWOOD DTR, * Verbal permission to speak to the caregivers and representatives has been obtained from the patient. N/A * Community resources currently utilized None * Please name any agencies selected above. NONE * Additional services required to return to the preadmission environment? Yes * Can the patient safely return to the preadmission environment? Yes * Has this patient been hospitalized within the prior 30 days at any hospital? No External Providers External Provider: [facility] *(provides inpt [facility] Next Contact Date: 05/27/2019 Service Request Date: Service Type: Resolution: Reviewer: Comments: Coverage Notice Reviewer: HARI Gallego Notice Issued Date-Time: 05/25/2019 14:35 Notice Type: Patient Choice Letter Notice Delivered To: Family Member Relationship to Patient: Daughter Echo Tech Name: SILVIANO UNDERWOOD Delivery Method: HAND - Hand Delivered Emerald Days: Prior Verbal Notification: Recipient Understood Notice: Yes Recipient Signature: Yes Med Rec Note Co-signed by Attending: Coverage Notice Comment: [facility] OR COUNTS [facility]CLUDE [facility] BEDS AT THE [facility] REHAB REFUSED: HOSPICE Reviewer: [id number] Gallego Notice Issued Date-Time: 05/26/2019 13:05 Notice Type: Patient Choice Letter Notice Delivered To: Family Member Relationship to Patient: Daughter Echo Tech Name: SILVIANO UNDERWOOD Delivery Method: HAND - Hand Delivered Emerald Days: Prior Verbal Notification: Recipient Understood Notice: Yes Recipient Signature: Yes Med Rec Note Co-signed by Attending: Coverage Notice Comment: [facility] Last DP export: 05/26/19 3:55 p Patient Name: ALEXANDRO TOMLINSON Page 32700 at 1640 All edits/amendments must be made on the electronic document DICTATION DATE: 05/27/19 163 ORGANIC PREPARATION ANALYST: GAMALIEL 05/27/19 163 RPT#: [id number] DC DATE: STATUS: ADM IN [facility] [address] [place] [address] END OF REPORT
--- NOTE | 2019-05-27 16:48 | MORECARE ---
CASE MANAGEMENT DISCHARGE SUMMARY PATIENT: ALEXANDRO TOMLINSON UNIT: [id number] ADM DATE: 05/19/19 AGE: 83 : 34 SEX: F ROOM/BED: D.5213 AUTHOR: CHAU,DOC PHYSICIAN: REFERRING PHYSICIAN: KI DOYLE MD DATE OF SERVICE: 05/27/19 Discharge Plan Patient Name: ALEXANDRO TOMLINSON Facility: [facility]:[place] : 1935 Planned Disposition: Hospice Medical Facility Anticipated Discharge Date: 05/27/19 Discharge Date: Expected LOS: 8 Initial Reviewer: [id number] Initial Review Date: 05/25/2019 Generated: 05/27/19 5:47 pm Comments DCP- Discharge Planning Updated by [id number]: Roscoe Rivera on 05/27/19 3:[address] Patient Name: ALXEANDRO TOMLINSON Encounter No: [id number] : 1935 Primary Insurance: MEDICARE A & B Anticipated DC Date: 05-27-2019 Planned Disposition: Hospice Medical Facility External Planned Provider: [facility] DCP follow-up note: CM CALLED PT'S FAMILY AT [phone] SNF [phone]. THERE WAS NO ANSWER AT EITHER NUMBER. CM LATER RECEIVED CALL FROM ARABELLAALLEN UNDERWOOD, DAUGHTER. CM EXPLAINED THAT [facility] DID NOT FEEL PT TO BE APPROPRIATE FOR INPATIENT. CM DISCUSSED PLACEMENT IN ALF OR HOSPICE [facility] FAMILY REPORTS INABILITY TO CARE FOR PT AT HOME. SILVIANO INFORMED CM THAT THE DOCTOR AT [facility] TOLD HER THAT PT ONLY HAS DAYS TO LIVE AND WANTS CM TO CALL [facility] SHE THINKS THEY CAN PROVIDE INPATIENT HOSPICE AND THEN CALL SILVIANO BACK. CM CALLED [facility], SPOKE TO FRAN AND DEBORA, BOTH OF WHICH INFORMED CM THAT THEY DO NOT DO INPATIENT HOSPICE AND REFERRED CM TO [facility] FOR ALF HOSPICE CARE. CM CALLED SILVIANO BACK, , INFORMED HER OF THE ABOVE. CM ASKED FOR OLDEST CHILD'S CONTACT INFORMATION, SILVIANO STATES SHE HAS ONE OLDER BROTHER, JERSEY TOMLINSON WHO HAS NOTHING TO DO WITH PT AT ALL. SILVIANO DOES NOT WANT TO CONSIDER ALF AT THIS TIME AND ASKED THAT PT BE EVALUATED BY [facility] FOR INPATIENT HOSPICE IN [place]. CHOICE COMPLETED. CM CALLED [facility], , SPOKE TO MARILYN AND PROVIDED REFERRAL FOR INPATIENT HOSPICE EVALUATION. MARILYN INFORMED CM THAT NURSE REMIGIO WILL EVALUATE PT SHORTLY. CM FAXED REFERRAL TO [facility] AT [phone], COPY OF REFERRAL AT DESK FOR REMIGIO WHEN HE ARRIVES. CM WAITING EVALUATION FROM [facility]. MINI Nunn MANAGEMENT DCP- Discharge Planning Updated by [id number]: Roscoe Rivera on 05/26/19 3:[address] Patient Name: ALEXANDRO TOMLINSON Encounter No: [id number] : 1935 Primary Insurance: MEDICARE A & B Anticipated DC Date: 05-26-2019 Planned Disposition: Hospice Medical Facility External Planned Provider: [facility] DCP follow-up note: CM RECEIVED HOSPICE ORDER, SPOKE TO PT'S DAUGHTER, SILVIANO, WHO HAS SPOKEN WITH ANDERSON REGALADO AND IS IN AGREEMENT WITH HOSPICE. PROVIDERS OF HOSPICE, LOCATIONS OF HOSPICE AND SERVICES DISCUSSED. SILVIANO WOULD LIKE TO KEEP PT AT [facility] FOR HOSPICE IF POSSIBLE. CHOICE SIGNED. IMPORTANT MESSAGE FROM MEDICARE PROVIDED AND EXPLAINED. CM CALLED [facility], , PROVIDED REFERRAL TO [facility] WHO WILL SEND NURSE OUT TO EVALUATE PT SHORTLY FOR INPATIENT HOSPICE. CM [facility] AT [phone]. CM WAITING HOSPICE EVALUATION FOR INPATIENT HOSPICE BY [facility]. Roscoe Rivera, CASE MANAGEMENT Appended by Roscoe Rivera on 05/26/2019 16:54 CDT: CM SPOKE TO NURSE CRAIG OF [facility], SHE HAS EVALUATED PT AND FOUND THAT PT IS NOT APPROPRIATE FOR INPATIENT HOSPICE AFTER CONSULTATION WITH DR. DURÁN. THEY WOULD BE ABLE TO ADMIT AT HOME OR ALF. KIARA ASKED THAT [facility] BE RECONSUILTED FOR INPATIENT HOSPICE IF THERE IS A DECLINE IN PATIENTS CONDITION. PT'S DAUGHTER NOT HERE, CM TO FOLLOW UP WITH PT'S DAUGHTER SOON POSSIBLE REGARDING POSSIBLE ALF PLACEMENT WITH HOSPICE. MINI NUNN DCP- Discharge Planning Updated by [id number]: Roscoe Rivera on 05/25/19 2:[address] Patient Name: ALEXANDRO TOMLINSON Admission Status: ER Accout number: [id number] Admission Date: 05-19-2019 : 1935 Admission Diagnosis: Attending: KATIE DOYLE Current LOS: 6 Anticipated DC Date: Planned Disposition: Inpatient Rehab Primary Insurance: MEDICARE A & B PLANNED EXTERNAL PROVIDER: [facility] Discharge Planning Comments: CM RECEIVED HOSPICE ORDER, MET WITH PT AND DAUGHTER IN ROOM TO DISCUSS DISCHARGE PLANNING AND NEEDS. PT HAVING BOWEL MOVEMENT, DAUGHTER ASKED TO SPEAK OUTSIDE ROOM. PT HAS BEEN LIVING AT HOME INDEPENDENTLY AND ALONE NEXT DOOR TO DAUGHTER. PT HAS NOT BEEN USING ANY MEDICAL EQUIPMENT. PT TAKES NO HOME MEDICATIONS. CM DISCUSSED PT'S NON COMPLIANCE WITH OXYGEN AND BIPAP AND ALSO DISCUSSED HOSPICE OPTIONS, LOCATIONS AND PROVIDERS. PT'S DAUGHTER REPORTS THAT SHE DOES NOT THINK THEY ARE READY FOR HOSPICE AND THAT SHE BELIEVES PT WILL GET BETTER AND MAY NEED REHAB. CM PROVIDED HOSPICE INFORMATION. PT'S DAUGHTER INFORMED CM THAT THEY ARE GOING TO TRY THE BIPAP AGAIN AND THAT PT IS JUST WANTING TO SLEEP NOW BUT IS RESPONDING VERBALLY TO THEM. CM DISCUSSED AVAILABILITY OF HOME HEALTH, REHAB SERVICES AND MEDICAL EQUIPMENT. PT'S DAUGHER IS THINKING OF REHAB AT [facility]; CM EXPLAINED THAT PT WILL NEED TO BE ABLE TO PARTICIPATE IN THREE HOURS OF PROGRESSIVE THERAPY FROM DAY OF ADMIT, SHE FEELS THAT PT WILL RECOVER AND BE ABLE TO DO SO. SECOND CHOICE IS [facility]. FAMILY PLANS TO TRANSPORT PT TO INPATIENT REHAB. CHOICE SIGNED FOR INPATIENT REHAB AT [facility]. REFUSAL FOR HOSPICE SIGNED. FAMILY IS NOT READY FOR HOSPICE AND FEELS THAT PT WILL COOPERATE WITH BIPAP, RECOVER AND BE ABLE TO GO TO INPATIENT REHAB OR [facility] REH[facility] IN [place]. CM TO CONTINUE TO FOLLOW AND ASSIST NEEDED. Bag Repairer: [facility]coe Rivera [facility] - Discharge Planning Initial Assessment Updated by [id number]: Roscoe Rivera on 05/25/19 3:15 pm * Is the patient Alert and Oriented? Yes * How many steps to enter\exit or inside your home? * PCP DR. ROSENBAUM * Pharmacy [facility] * Preadmission Environment Home Alone * ADLs Independent * Equipment None * Other Equipment [employer] - PROVIDER PREFERENCE * List name and contact numbers for known caregivers / representatives who currently or will assist patient after discharge: SILVIANO UNDERWOOD, DTR, * Verbal permission to speak to the caregivers and representatives has been obtained from the patient. N/A * Community resources currently utilized None * Please name any agencies selected above. NONE * Additional services required to return to the preadmission environment? Yes * Can the patient safely return to the preadmission environment? Yes * Has this patient been hospitalized within the prior 30 days at any hospital? No Coverage Notice Reviewer: [id number] Rivera Notice Issued Date-Time: 05/25/2019 14:35 Notice Type: Patient Choice Letter Notice Delivered To: Family Member Relationship to Patient: Daughter Enrichment Director Name: SILVIANO UNDERWOOD Delivery Method: HAND - Hand Delivered Emerald Days: Prior Verbal Notification: Recipient Understood Notice: Yes Recipient Signature: Yes Med Rec Note Co-signed by Attending: Coverage Notice Comment: [facility] [facility] OR [facility] REFUSED: HOSPICE Reviewer: [id number] Rivera Notice Issued Date-Time: 05/26/2019 13:05 Notice Type: Patient Choice Letter Notice Delivered To: Family Member Relationship to Patient: Daughter Enrichment Director Name: SILVIANO UNDERWOOD Delivery Method: HAND - Hand Delivered Emerald Days: Prior Verbal Notification: Recipient Understood Notice: Yes Recipient Signature: Yes Med Rec Note Co-signed by Attending: Coverage Notice Comment: [facility] Reviewer: [id number] Rivera Notice Issued Date-Time: 05/27/2019 16:30 Notice Type: Patient Choice Letter Notice Delivered To: Family Member Relationship to Patient: Daughter Enrichment Director Name: SILVIANO UNDERWOOD Delivery Method: PHONE - Phone Emerald Days: Prior Verbal Notification: Recipient Understood Notice: Yes Recipient Signature: Med Rec Note Co-signed by Attending: Coverage Notice Comment: [facility] Last DP export: 05/27/19 3:40 p Patient Name: ALEXANDRO TOMLINSON Page 65035 at 1648 All edits/amendments must be made on the electronic document DICTATION DATE: 05/27/191646 SIGN MAINTENANCE: GAMALIEL 05/27/191646 RPT#: [id number] [place] DATE: STATUS: ADM IN [facility] [address] [place] [address] END OF REPORT
--- NOTE | 2019-05-27 17:13 | NUR ---
PT HAS BEEN APPROVED FOR [facility]. PT'S DAUGHTER AUNG STATED TO HOSPICE NURSE OVER THE PHONE SHE WILL BE IN TOWN TOMORROW TO SIGN PAPERS FOR HER TO GO.
--- NOTE | 2019-05-27 17:21 | MORECARE ---
CASE MANAGEMENT DISCHARGE SUMMARY PATIENT: ALEXANDRO TOMLINSON UNIT: [id number] ADM DATE: 05/19/19 AGE: 83 : 34 SEX: F ROOM/BED: D.3482 AUTHOR: CHAU,DOC PHYSICIAN: REFERRING PHYSICIAN: KI DOYLE MD DATE OF SERVICE: 05/27/19 Discharge Plan Patient Name: ALEXANDRO TOMLISNON Facility: [facility]:[place] : 1935 Planned Disposition: Hospice Medical Facility Anticipated Discharge Date: 05/28/19 Discharge Date: Expected LOS: 9 Initial Reviewer: [id number] Initial Review Date: 05/25/2019 Generated: 05/27/19 6:21 pm Comments DCP- Discharge Planning Updated by [id number]: Roscoe Rivera on 05/27/19 3:[address] Patient Name: ALEXANDRO TOMLINSON Encounter No: [id number] : 1935 Primary Insurance: MEDICARE A & B Anticipated DC Date: 05-27-2019 Planned Disposition: Hospice Medical Facility External Planned Provider: [facility] DCP follow-up note: CM CALLED PT'S FAMILY AT [phone] SNF [phone]. THERE WAS NO ANSWER AT EITHER NUMBER. CM LATER RECEIVED CALL FROM ARABELLAALLEN UNDERWOOD, DAUGHTER. CM EXPLAINED THAT [facility] DID NOT FEEL PT TO BE APPROPRIATE FOR INPATIENT. CM DISCUSSED PLACEMENT IN FPC OR HOSPICE DETENTION FAMILY REPORTS INABILITY TO CARE FOR PT AT HOME. SILVIANO INFORMED CM THAT THE DOCTOR AT [facility] TOLD HER THAT PT ONLY HAS DAYS TO LIVE AND WANTS CM TO CALL [facility] SHE THINKS THEY CAN PROVIDE INPATIENT HOSPICE AND THEN CALL SILVIANO BACK. CM CALLED [facility], SPOKE TO [facility]AN AND [facility], BOTH OF WHICH INFORMED CM THAT THEY DO NOT DO INPATIENT HOSPICE AND REFERRED CM TO [facility] FOR FPC HOSPICE CARE. CM CALLED SILVIANO BACK, , INFORMED HER OF THE ABOVE. CM ASKED FOR OLDEST CHILD'S CONTACT INFORMATION, SILVIANO STATES SHE HAS ONE OLDER BROTHER, JERSEY TOMLINSON WHO HAS NOTHING TO DO WITH PT AT ALL. SILVIANO DOES NOT WANT TO CONSIDER FPC AT THIS TIME AND ASKED THAT PT BE EVALUATED BY [facility] FOR INPATIENT HOSPICE IN [place]. CHOICE COMPLETED. CM CALLED [facility], , SPOKE TO MARILYN AND PROVIDED REFERRAL FOR INPATIENT HOSPICE EVALUATION. MARILYN INFORMED CM THAT NURSE REMIGIO WILL EVALUATE PT SHORTLY. CM FAXED REFERRAL TO [facility] AT [phone], COPY OF REFERRAL AT DESK FOR REMIGIO WHEN HE ARRIVES. CM WAITING EVALUATION FROM [facility]. MINI Nunn MANAGEMENT DCP- Discharge Planning Updated by [id number]: Roscoe Rivera on 05/26/19 3:[address] Patient Name: ALEXANDRO TOMLINSON Encounter No: [id number] : 1935 Primary Insurance: MEDICARE A & B Anticipated DC Date: 05-26-2019 Planned Disposition: Hospice Medical Facility External Planned Provider: [facility] DCP follow-up note: CM RECEIVED HOSPICE ORDER, SPOKE TO PT'S DAUGHTER, SILVIANO, WHO HAS SPOKEN WITH ANDERSON REGALADO AND IS IN AGREEMENT WITH HOSPICE. PROVIDERS OF HOSPICE, LOCATIONS OF HOSPICE AND SERVICES DISCUSSED. SILVIANO WOULD LIKE TO KEEP PT AT [facility] [place] FOR HOSPICE IF POSSIBLE. CHOICE SIGNED. IMPORTANT MESSAGE FROM MEDICARE PROVIDED AND EXPLAINED. CM CALLED [facility], , PROVIDED REFERRAL TO [facility] WHO WILL SEND NURSE OUT TO EVALUATE PT SHORTLY FOR INPATIENT HOSPICE. CM [facility] AT [phone]. CM WAITING HOSPICE EVALUATION FOR INPATIENT HOSPICE BY [facility]. Roscoe Rivera, CASE MANAGEMENT Appended by Roscoe Rivera on 05/26/2019 16:54 CDT: CM SPOKE TO NURSE CRAIG OF [facility], SHE HAS EVALUATED PT AND FOUND THAT PT IS NOT APPROPRIATE FOR INPATIENT HOSPICE AFTER CONSULTATION WITH DR. DURÁN. THEY WOULD BE ABLE TO ADMIT AT HOME OR FPC. KIARA ASKED THAT [facility] BE RECONSUILTED FOR INPATIENT HOSPICE IF THERE IS A DECLINE IN PATIENTS CONDITION. PT'S DAUGHTER NOT HERE, CM TO FOLLOW UP WITH PT'S DAUGHTER SOON POSSIBLE REGARDING POSSIBLE FPC PLACEMENT WITH HOSPICE. MINI NUNN DCP- Discharge Planning Updated by [id number]: Roscoe Rivera on 05/25/19 2:[address] Patient Name: ALEXANDRO TOMLINSON Admission Status: ER Accout number: [id number] Admission Date: 05-19-2019 : 1935 Admission Diagnosis: Attending: KATIE DOYLE Current LOS: 6 Anticipated DC Date: Planned Disposition: Inpatient Rehab Primary Insurance: MEDICARE A & B PLANNED EXTERNAL PROVIDER: [place] [facility] [facility] Discharge Planning Comments: CM RECEIVED HOSPICE ORDER, MET WITH PT AND DAUGHTER IN ROOM TO DISCUSS DISCHARGE PLANNING AND NEEDS. PT HAVING BOWEL MOVEMENT, DAUGHTER ASKED TO SPEAK OUTSIDE ROOM. PT HAS BEEN LIVING AT HOME INDEPENDENTLY AND ALONE NEXT DOOR TO DAUGHTER. PT HAS NOT BEEN USING ANY MEDICAL EQUIPMENT. PT TAKES NO HOME MEDICATIONS. CM DISCUSSED PT'S NON COMPLIANCE WITH OXYGEN AND BIPAP AND ALSO DISCUSSED HOSPICE OPTIONS, LOCATIONS AND PROVIDERS. PT'S DAUGHTER REPORTS THAT SHE DOES NOT THINK THEY ARE READY FOR HOSPICE AND THAT SHE BELIEVES PT WILL GET BETTER AND MAY NEED REHAB. CM PROVIDED HOSPICE INFORMATION. PT'S DAUGHTER INFORMED CM THAT THEY ARE GOING TO TRY THE BIPAP AGAIN AND THAT PT IS JUST WANTING TO SLEEP NOW BUT IS RESPONDING VERBALLY TO THEM. CM DISCUSSED AVAILABILITY OF HOME HEALTH, REHAB SERVICES AND MEDICAL EQUIPMENT. PT'S DAUGHER IS THINKING OF REHAB AT [facility]; CM EXPLAINED THAT PT WILL NEED TO BE ABLE TO PARTICIPATE IN THREE HOURS OF PROGRESSIVE THERAPY FROM DAY OF ADMIT, SHE FEELS THAT PT WILL RECOVER AND BE ABLE TO DO SO. SECOND CHOICE IS [facility]. FAMILY PLANS TO TRANSPORT PT TO INPATIENT REHAB. CHOICE SIGNED FOR INPATIENT REHAB AT [facility]. REFUSAL FOR HOSPICE SIGNED. FAMILY IS NOT READY FOR HOSPICE AND FEELS THAT PT WILL COOPERATE WITH BIPAP, RECOVER AND BE ABLE TO GO TO INPATIENT REHAB OR SENIOR LIVING REHAB IN [place]. CM TO CONTINUE TO FOLLOW AND ASSIST NEEDED. Intelligence Analyst: Roscoe Rivera [facility] - Discharge Planning Initial Assessment Updated by [id number]: Roscoe Rivera on 05/25/19 3:15 pm * Is the patient Alert and Oriented? Yes * How many steps to enter\exit or inside your home? * PCP DR. ROSENBAUM * Pharmacy [facility] * Preadmission Environment Home Alone * ADLs Independent * Equipment None * Other Equipment [employer] - PROVIDER PREFERENCE * List name and contact numbers for known caregivers / representatives who currently or will assist patient after discharge: SILVIANO UNDERWOOD, DTR, * Verbal permission to speak to the caregivers and representatives has been obtained from the patient. N/A * Community resources currently utilized None * Please name any agencies selected above. NONE * Additional services required to return to the preadmission environment? Yes * Can the patient safely return to the preadmission environment? Yes * Has this patient been hospitalized within the prior 30 days at any hospital? No Coverage Notice Reviewer: [id number] Rivera Notice Issued Date-Time: 05/25/2019 14:35 Notice Type: Patient Choice Letter Notice Delivered To: Family Member Relationship to Patient: Daughter Sweeper Operator Highways Name: SILVIANO UNDERWOOD Delivery Method: HAND - Hand Delivered Emerald Days: Prior Verbal Notification: Recipient Understood Notice: Yes Recipient Signature: Yes Med Rec Note Co-signed by Attending: Coverage Notice Comment: [place] [facility] [facility] OR [facility] REFUSED: HOSPICE Reviewer: [id number] Rivera Notice Issued Date-Time: 05/26/2019 13:05 Notice Type: Patient Choice Letter Notice Delivered To: Family Member Relationship to Patient: Daughter Sweeper Operator Highways Name: SILVIANO UNDERWOOD Delivery Method: HAND - Hand Delivered Emerald Days: Prior Verbal Notification: Recipient Understood Notice: Yes Recipient Signature: Yes Med Rec Note Co-signed by Attending: Coverage Notice Comment: [facility] Reviewer: [id number] Rivera Notice Issued Date-Time: 05/27/2019 16:30 Notice Type: Patient Choice Letter Notice Delivered To: Family Member Relationship to Patient: Daughter Sweeper Operator Highways Name: SILVIANO UNDERWOOD Delivery Method: PHONE - Phone Emerald Days: Prior Verbal Notification: Recipient Understood Notice: Yes Recipient Signature: Med Rec Note Co-signed by Attending: Coverage Notice Comment: [facility] Last DP export: 05/27/19 3:48 p Patient Name: ALEXANDRO TOMLINSON Page [id number] at 1721 All edits/amendments must be made on the electronic document DICTATION DATE: 05/27/191720 [facility] CONSULTANT: GAMALIEL 05/27/191720 RPT#: [id number] DC DATE: STATUS: ADM IN [facility] [address] [place] [address] END OF REPORT
--- NOTE | 2019-05-27 17:31 | MORECARE ---
CASE MANAGEMENT DISCHARGE SUMMARY PATIENT: ALEXANDRO TOMLINSON UNIT: [id number] ADM DATE: 05/19/19 AGE: 83 : 34 SEX: F ROOM/BED: D.8164 AUTHOR: CHAU,DOC PHYSICIAN: REFERRING PHYSICIAN: KI DOYLE MD DATE OF SERVICE: 05/27/19 Discharge Plan Patient Name: ALEXANDRO TOMLINSON Facility: [facility]:[place] : 1935 Planned Disposition: Hospice Medical Facility Anticipated Discharge Date: 05/28/19 Discharge Date: Expected LOS: 9 Initial Reviewer: [id number] Initial Review Date: 05/25/2019 Generated: 05/27/19 6:31 pm Comments DCP- Discharge Planning Updated by [id number]: Mone Gallego on 05/27/19 4:[address] Patient Name: ALEXANDRO TOMLINSON Encounter No: [id number] : 1935 Primary Insurance: MEDICARE A & B Anticipated DC Date: 05-27-2019 Planned Disposition: Hospice Medical Facility External Planned Provider: [facility] DCP follow-up note: CM CALLED PT'S FAMILY AT [phone] SNF [phone]. THERE WAS NO ANSWER AT EITHER NUMBER. CM LATER RECEIVED CALL FROM ARABELLAALLEN UNDERWOOD, DAUGHTER. CM EXPLAINED THAT [facility] DID NOT FEEL PT TO BE APPROPRIATE FOR INPATIENT. CM DISCUSSED PLACEMENT IN ASSISTED OR HOSPICE ASSISTED FAMILY REPORTS INABILITY TO CARE FOR PT AT HOME. SILVIANO INFORMED CM THAT THE DOCTOR AT [facility] TOLD HER THAT PT ONLY HAS DAYS TO LIVE AND WANTS CM TO CALL [facility] SHE THINKS THEY CAN PROVIDE INPATIENT HOSPICE AND THEN CALL SILVIANO BACK. CM CALLED [facility], SPOKE TO FRAN AND [facility]A, BOTH OF WHICH INFORMED CM THAT THEY DO NOT DO INPATIENT HOSPICE AND REFERRED CM TO [facility] FOR ASSISTED HOSPICE CARE. CM CALLED SILVIANO BACK, , INFORMED HER OF THE ABOVE. CM ASKED FOR OLDEST CHILD'S CONTACT INFORMATION, SILVIANO STATES SHE HAS ONE OLDER BROTHER, JERSEY TOMLINSON WHO HAS NOTHING TO DO WITH PT AT ALL. SILVIANO DOES NOT WANT TO CONSIDER ASSISTED AT THIS TIME AND ASKED THAT PT BE EVALUATED BY [facility] FOR INPATIENT HOSPICE IN [place]. CHOICE COMPLETED. CM CALLED [facility], , SPOKE TO MARILYN AND PROVIDED REFERRAL FOR INPATIENT HOSPICE EVALUATION. MARILYN INFORMED CM THAT NURSE REMIGIO WILL EVALUATE PT SHORTLY. CM FAXED REFERRAL TO [facility] AT [phone], COPY OF REFERRAL AT DESK FOR REMIGIO WHEN HE ARRIVES. CM WAITING EVALUATION FROM [facility]. Mone Gallego, CASE MANAGEMENT Appended by Mone Gallego on 05/27/2019 17:21 CDT: CM SPOKE TO REMIGIO OF [facility], THEY WILL ACCEPT PT AND THE PT'S FAMILY CANNOT MAKE IT TO SIGN PAPERWORK UNTIL TOMORROW MORNING, 05-28-19. [facility] TO ACCEPT PT AFTER LEGALS ARE SIGNED TOMORROW, 05-28-19. CM WAITING LEGALS TO BE SIGNED BY PT'S FAMILY TOMORROW, 05-28-19. [facility] TO PROVIDE NUMBER FOR NURSE REPORT AND ROOM NUMBER ONCE ALL PAPERWORK IS COMPLETED BY FAMILY. MONE GALLEGO, CASE MANAGEMENT DCP- Discharge Planning Updated by [id number]: Mone Gallego on 05/26/19 3:[address] Patient Name: ALEXANDRO TOMLINSON Encounter No: [id number] : 1935 Primary Insurance: MEDICARE A & B Anticipated DC Date: 05-26-2019 Planned Disposition: Hospice Medical Facility External Planned Provider: [facility] DCP follow-up note: CM RECEIVED HOSPICE ORDER, SPOKE TO PT'S DAUGHTER, SILVIANO, WHO HAS SPOKEN WITH [facility] AND IS IN AGREEMENT WITH HOSPICE. PROVIDERS OF HOSPICE, LOCATIONS OF HOSPICE AND SERVICES DISCUSSED. SILVIANO WOULD LIKE TO KEEP PT AT [place] FOR HOSPICE IF POSSIBLE. CHOICE SIGNED. IMPORTANT MESSAGE FROM MEDICARE PROVIDED AND EXPLAINED. CM CALLED [facility], , PROVIDED REFERRAL TO [facility] WHO WILL SEND NURSE OUT TO EVALUATE PT SHORTLY FOR INPATIENT HOSPICE. CM FAXED REFERRAL TO [facility] AT [phone]. CM WAITING HOSPICE EVALUATION FOR INPATIENT HOSPICE BY [facility]. Mone Gallego, CASE MANAGEMENT Appended by Mone Gallego on 05/26/2019 16:54 CDT: CM SPOKE TO NURSE CRAIG OF [facility], SHE HAS EVALUATED PT AND FOUND THAT PT IS NOT APPROPRIATE FOR INPATIENT HOSPICE AFTER CONSULTATION WITH DR. DURÁN. THEY WOULD BE ABLE TO ADMIT AT HOME OR ASSISTED. KIARA ASKED THAT [facility] BE RECONSUILTED FOR INPATIENT HOSPICE IF THERE IS A DECLINE IN PATIENTS CONDITION. PT'S DAUGHTER NOT HERE, CM TO FOLLOW UP WITH PT'S DAUGHTER SOON POSSIBLE REGARDING POSSIBLE ASSISTED PLACEMENT WITH HOSPICE. MONE GALLEGO, CASE MANAGEMENT DCP- Discharge Planning Updated by [id number]: Mone Gallego on 05/25/19 2:[address] Patient Name: ALEXANDRO TOMLINSON Admission Status: ER Accout number: [id number] Admission Date: 05-19-2019 : 1935 Admission Diagnosis: Attending: KATIE DOYLE Current LOS: 6 Anticipated DC Date: Planned Disposition: Inpatient Rehab Primary Insurance: MEDICARE A & B PLANNED EXTERNAL PROVIDER: [place] [facility] Discharge Planning Comments: CM RECEIVED HOSPICE ORDER, MET WITH PT AND DAUGHTER IN ROOM TO DISCUSS DISCHARGE PLANNING AND NEEDS. PT HAVING BOWEL MOVEMENT, DAUGHTER ASKED TO SPEAK OUTSIDE ROOM. PT HAS BEEN LIVING AT HOME INDEPENDENTLY AND ALONE NEXT DOOR TO DAUGHTER. PT HAS NOT BEEN USING ANY MEDICAL EQUIPMENT. PT TAKES NO HOME MEDICATIONS. CM DISCUSSED PT'S NON COMPLIANCE WITH OXYGEN AND BIPAP AND ALSO DISCUSSED HOSPICE OPTIONS, LOCATIONS AND PROVIDERS. PT'S DAUGHTER REPORTS THAT SHE DOES NOT THINK THEY ARE READY FOR HOSPICE AND THAT SHE BELIEVES PT WILL GET BETTER AND MAY NEED REHAB. CM PROVIDED HOSPICE INFORMATION. PT'S DAUGHTER INFORMED CM THAT THEY ARE GOING TO TRY THE BIPAP AGAIN AND THAT PT IS JUST WANTING TO SLEEP NOW BUT IS RESPONDING VERBALLY TO THEM. CM DISCUSSED AVAILABILITY OF HOME HEALTH, REHAB SERVICES AND MEDICAL EQUIPMENT. PT'S DAUGHER IS THINKING OF REHAB AT [facility]; CM EXPLAINED THAT PT WILL NEED TO BE ABLE TO PARTICIPATE IN THREE HOURS OF PROGRESSIVE THERAPY FROM DAY OF ADMIT, SHE FEELS THAT PT WILL RECOVER AND BE ABLE TO DO SO. SECOND CHOICE IS [facility]. FAMILY PLANS TO TRANSPORT PT TO INPATIENT REHAB. CHOICE SIGNED FOR INPATIENT REHAB AT [facility]. REFUSAL FOR HOSPICE SIGNED. FAMILY IS NOT READY FOR HOSPICE AND FEELS THAT PT WILL COOPERATE WITH BIPAP, RECOVER AND BE ABLE TO GO TO INPATIENT REHAB OR SENIOR CARE REHAB IN [place]. CM TO CONTINUE TO FOLLOW AND ASSIST NEEDED. Energy Sales Consultant: Mone Gallego DCPIA - Discharge Planning Initial Assessment Updated by [id number]: Mone Gallego on 05/25/19 3:15 pm * Is the patient Alert and Oriented? Yes * How many steps to enter\exit or inside your home? * PCP DR. ROSENBAUM * Pharmacy [facility] * Preadmission Environment Home Alone * ADLs Independent * Equipment None * Other Equipment [employer] - PROVIDER PREFERENCE * List name and contact numbers for known caregivers / representatives who currently or will assist patient after discharge: SILVIANO UNDERWOOD, DTR, * Verbal permission to speak to the caregivers and representatives has been obtained from the patient. N/A * Community resources currently utilized None * Please name any agencies selected above. NONE * Additional services required to return to the preadmission environment? Yes * Can the patient safely return to the preadmission environment? Yes * Has this patient been hospitalized within the prior 30 days at any hospital? No Coverage Notice Reviewer: [id number] Jose Gallego Notice Issued Date-Time: 05/25/2019 14:35 Notice Type: Patient Choice Letter Notice Delivered To: Family Member Relationship to Patient: Daughter Dredge Operator Name: SILVIANO UNDERWOOD Delivery Method: HAND - Hand Delivered Emerald Days: Prior Verbal Notification: Recipient Understood Notice: Yes Recipient Signature: Yes Med Rec Note Co-signed by Attending: Coverage Notice Comment: [place] [facility] OR [facility] REFUSED: HOSPICE Reviewer: [id number] Jose Gallego Notice Issued Date-Time: 05/26/2019 13:05 Notice Type: Patient Choice Letter Notice Delivered To: Family Member Relationship to Patient: Daughter Dredge Operator Name: SILVIANO UNDERWOOD Delivery Method: HAND - Hand Delivered Emerald Days: Prior Verbal Notification: Recipient Understood Notice: Yes Recipient Signature: Yes Med Rec Note Co-signed by Attending: Coverage Notice Comment: [facility] Reviewer: [id number] Jose Gallego Notice Issued Date-Time: 05/27/2019 16:30 Notice Type: Patient Choice Letter Notice Delivered To: Family Member Relationship to Patient: Daughter Dredge Operator Name: SILVIANO UNDERWOOD Delivery Method: PHONE - Phone Emerald Days: Prior Verbal Notification: Recipient Understood Notice: Yes Recipient Signature: Med Rec Note Co-signed by Attending: Coverage Notice Comment: [facility] Last DP export: 05/27/19 4:21 p Patient Name: ALEXANDRO TOMLINSON Page [id number] at 1731 All edits/amendments must be made on the electronic document DICTATION DATE: 05/27/191730 GUMMED TAPE PRESS OPERATOR: GAMALIEL 05/27/191730 RPT#: [id number] DC DATE: STATUS: ADM IN [facility] [address] [place] [address] END OF REPORT
[2019-05-27 18:31] VITALS: BP 129/78
[2019-05-27 20:00] VITALS: BP 126/71
--- NOTE | 2019-05-28 07:15 | NUR ---
ASSESSMENT DONE. RT AT SIDE. PULSE OX, 72. BIPAP PER RT.
--- NOTE | 2019-05-28 08:20 | NUR ---
DAUGHTER CALLED AND DOES NOT WANT BIPAP ON PT. BIPAP REMOVED AND NON-REBREATHER APPLTED
--- NOTE | 2019-05-28 08:45 | MORECARE ---
CASE MANAGEMENT DISCHARGE SUMMARY PATIENT: ALEXANDRO TOMLINSON UNIT: [id number] ADM DATE: 05/19/19 AGE: 83 : 34 SEX: F ROOM/BED: D.5227 AUTHOR: CHAUDOC PHYSICIAN: REFERRING PHYSICIAN: KI DOYLE MD DATE OF SERVICE: 05/28/19 Discharge Plan Patient Name: ALEXANDRO TOMLINSON Facility: [facility]:[place] : 1935 Planned Disposition: Hospice Medical Facility Anticipated Discharge Date: 05/28/19 Discharge Date: Expected LOS: 9 Initial Reviewer: [id number] Initial Review Date: 05/25/2019 Generated: 05/28/19 9:45 am Comments DCP- Discharge Planning Updated by [id number]: Mone Gallego on 05/28/19 7:[address] Patient Name: ALEXANDRO TOMLINSON Encounter No: [id number] : 1935 Primary Insurance: MEDICARE A & B Anticipated DC Date: 05-28-2019 Planned Disposition: Hospice Medical Facility External Planned Provider: [facility] DCP follow-up note: CM SPOKE TO BEDSIDE NURSE WHO INFORMED CM THAT PT HAS HAD A DECLINE OVERNIGHT. CM CALLED AND SPOKE TO SILVIANO UNDERWOOD, DAUGHTER, WHO REPORTS SHE IS ON THE WAY TO THE HOSPITAL AND WOULD LIKE TO HAVE [facility] RE EVALUATE PT. SILVIANO WILL MAKE THE DECISION OF WHICH HOSPICE WHEN SHE ARRIVES. CM CALLED [facility], , LEFT MESSAGE FOR PAIGE WHO WILL CALL CM BACK IN ABOUT 20 MINUTES. CM WAITING ARRIVAL OF PT'S DAUGHTER TO HOSPITAL WHO WILL MAKE DECISION BETWEEN [facility] OR [facility]. MONE GALLEGO, CASE MANAGEMENT Mone Gallego DCP- Discharge Planning Updated by [id number]: Mone Gallego on 05/27/19 4:[address] Patient Name: ALEXANDRO TOMLINSON Encounter No: [id number] : 1935 Primary Insurance: MEDICARE A & B Anticipated DC Date: 05-27-2019 Planned Disposition: Hospice Medical Facility External Planned Provider: [facility] DCP follow-up note: CM CALLED PT'S FAMILY AT [phone] SNF [id number]. THERE WAS NO ANSWER AT EITHER NUMBER. CM LATER RECEIVED CALL FROM SILVIANO UNDERWOOD, DAUGHTER. CM EXPLAINED THAT [facility] DID NOT FEEL PT TO BE APPROPRIATE FOR INPATIENT. CM DISCUSSED PLACEMENT IN [facility] OR HOSPICE SHELTER FAMILY REPORTS INABILITY TO CARE FOR PT AT HOME. SILVIANO INFORMED CM THAT THE DOCTOR AT [facility] TOLD HER THAT PT ONLY HAS DAYS TO LIVE AND WANTS CM TO CALL [facility] SHE THINKS THEY CAN PROVIDE INPATIENT HOSPICE AND THEN CALL SILVIANO BACK. CM CALLED [facility], SPOKE TO FRAN AND DEBORA, BOTH OF WHICH INFORMED CM THAT THEY DO NOT DO INPATIENT HOSPICE AND REFERRED CM TO [facility] FOR [facility] HOSPICE CARE. CM CALLED SILVIANO BACK, , INFORMED HER OF THE ABOVE. CM ASKED FOR OLDEST CHILD'S CONTACT INFORMATION, SILVIANO STATES SHE HAS ONE OLDER BROTHER, JERSEY TOMLINSON WHO HAS NOTHING TO DO WITH PT AT ALL. SILVIANO DOES NOT WANT TO CONSIDER FDC AT THIS TIME AND ASKED THAT PT BE EVALUATED BY [facility] FOR INPATIENT HOSPICE IN [place]. CHOICE COMPLETED. CM CALLED [facility], , SPOKE TO MARILYN AND PROVIDED REFERRAL FOR INPATIENT HOSPICE EVALUATION. MARILYN INFORMED CM THAT NURSE REMIGIO WILL EVALUATE PT SHORTLY. CM FAXED REFERRAL TO [facility] AT [phone], COPY OF REFERRAL AT DESK FOR REMIGIO WHEN HE ARRIVES. CM WAITING EVALUATION FROM [facility]. Mone Gallego, CASE MANAGEMENT Appended by Mone Gallego on 05/27/2019 17:21 CDT: CM SPOKE TO REMIGIO OF [facility], THEY WILL ACCEPT PT AND THE PT'S FAMILY CANNOT MAKE IT TO SIGN PAPERWORK UNTIL TOMORROW MORNING, 05-28-19. [facility] TO ACCEPT PT AFTER LEGALS ARE SIGNED TOMORROW, 05-28-19. CM WAITING LEGALS TO BE SIGNED BY PT'S FAMILY TOMORROW, 05-28-19. [facility] TO PROVIDE NUMBER FOR NURSE REPORT AND ROOM NUMBER ONCE ALL PAPERWORK IS COMPLETED BY FAMILY. MONE GALLEGO, CASE MANAGEMENT DCP- Discharge Planning Updated by [id number]: Mone Gallego on 05/26/19 3:[address] Patient Name: ALEXANDRO TOMLINSON Encounter No: [id number] : 1935 Primary Insurance: MEDICARE A & B Anticipated DC Date: 05-26-2019 Planned Disposition: Hospice Medical Facility External Planned Provider: [facility] AT [facility] DCP follow-up note: CM RECEIVED HOSPICE ORDER, SPOKE TO PT'S DAUGHTER, SILVIANO, WHO HAS SPOKEN WITH [facility] AND IS IN AGREEMENT WITH HOSPICE. PROVIDERS OF HOSPICE, LOCATIONS OF HOSPICE AND SERVICES DISCUSSED. SILVIANO WOULD LIKE TO KEEP PT AT [facility] FOR HOSPICE IF POSSIBLE. CHOICE SIGNED. IMPORTANT MESSAGE FROM MEDICARE PROVIDED AND EXPLAINED. CM CALLED [facility], , PROVIDED REFERRAL TO [facility] WHO WILL SEND NURSE OUT TO EVALUATE PT SHORTLY FOR INPATIENT HOSPICE. [phone]. CM WAITING HOSPICE EVALUATION FOR INPATIENT HOSPICE BY [facility]. Mone Gallego, CASE MANAGEMENT Appended by Mone Gallego on 05/26/2019 16:54 CDT: CM SPOKE TO NURSE CRAIG OF [facility], SHE HAS EVALUATED PT AND FOUND THAT PT IS NOT APPROPRIATE FOR INPATIENT HOSPICE AFTER CONSULTATION WITH DR. DURÁN. THEY WOULD BE ABLE TO ADMIT AT HOME OR [facility]. KIARA ASKED THAT [facility] BE RECONSUILTED FOR INPATIENT HOSPICE IF THERE IS A DECLINE IN PATIENTS CONDITION. PT'S DAUGHTER NOT HERE, CM TO FOLLOW UP WITH PT'S DAUGHTER SOON POSSIBLE REGARDING POSSIBLE [facility]DC PLACEMENT WITH HOSPICE. MONE GALLEGO, CASE MANAGEMENT DCP- Discharge Planning Updated by [id number]: Mone Gallego on 05/25/19 2:[address] Patient Name: ALEXANDRO TOMLINSON Admission Status: ER Accout number: [id number] Admission Date: 05-19-2019 : 1935 Admission Diagnosis: Attending: KATIE DOYLE Current LOS: 6 Anticipated DC Date: Planned Disposition: Inpatient Rehab Primary Insurance: MEDICARE A & B PLANNED EXTERNAL PROVIDER: [facility] Discharge Planning Comments: CM RECEIVED HOSPICE ORDER, MET WITH PT AND DAUGHTER IN ROOM TO DISCUSS DISCHARGE PLANNING AND NEEDS. PT HAVING BOWEL MOVEMENT, DAUGHTER ASKED TO SPEAK OUTSIDE ROOM. PT HAS BEEN LIVING AT HOME INDEPENDENTLY AND ALONE NEXT DOOR TO DAUGHTER. PT HAS NOT BEEN USING ANY MEDICAL EQUIPMENT. PT TAKES NO HOME MEDICATIONS. CM DISCUSSED PT'S NON COMPLIANCE WITH OXYGEN AND BIPAP AND ALSO DISCUSSED HOSPICE OPTIONS, LOCATIONS AND PROVIDERS. PT'S DAUGHTER REPORTS THAT SHE DOES NOT THINK THEY ARE READY FOR HOSPICE AND THAT SHE BELIEVES PT WILL GET BETTER AND MAY NEED REHAB. CM PROVIDED HOSPICE INFORMATION. PT'S DAUGHTER INFORMED CM THAT THEY ARE GOING TO TRY THE BIPAP AGAIN AND THAT PT IS JUST WANTING TO SLEEP NOW BUT IS RESPONDING VERBALLY TO THEM. CM DISCUSSED AVAILABILITY OF HOME HEALTH, REHAB SERVICES AND MEDICAL EQUIPMENT. PT'S DAUGHER IS THINKING OF REHAB AT [facility]; CM EXPLAINED THAT PT WILL NEED TO BE ABLE TO PARTICIPATE IN THREE HOURS OF PROGRESSIVE THERAPY FROM DAY OF ADMIT, SHE FEELS THAT PT WILL RECOVER AND BE ABLE TO DO SO. SECOND CHOICE IS [facility]. FAMILY PLANS TO TRANSPORT PT TO INPATIENT REHAB. CHOICE SIGNED FOR INPATIENT REHAB AT [facility] AND [facility]. REFUSAL FOR HOSPICE SIGNED. FAMILY IS NOT READY FOR HOSPICE AND FEELS THAT PT WILL COOPERATE WITH BIPAP, RECOVER AND BE ABLE TO GO TO INPATIENT REHAB OR RETIREMENT REHAB IN [place]. CM TO CONTINUE TO FOLLOW AND ASSIST NEEDED. Veterinary Physiologist: Mone Gallego [facility] - Discharge Planning Initial Assessment Updated by [id number]: Mone Gallego on 05/25/19 3:15 pm * Is the patient Alert and Oriented? Yes * How many steps to enter\exit or inside your home? * PCP DR. ROSENBAUM * Pharmacy [facility] * Preadmission Environment Home Alone * ADLs Independent * Equipment None * Other Equipment [facility] - PROVIDER PREFERENCE * List name and contact numbers for known caregivers / representatives who currently or will assist patient after discharge: SILVIANO KJ, FÉLIX, * Verbal permission to speak to the caregivers and representatives has been obtained from the patient. N/A * Community resources currently utilized None * Please name any agencies selected above. NONE * Additional services required to return to the preadmission environment? Yes * Can the patient safely return to the preadmission environment? Yes * Has this patient been hospitalized within the prior 30 days at any hospital? No Coverage Notice Reviewer: [id number] - Mone Gallego Notice Issued Date-Time: 05/25/2019 14:35 Notice Type: Patient Choice Letter Notice Delivered To: Family Member Relationship to Patient: Daughter Human Resources Department Supervisor Name: SILVIANO UNDERWOOD Delivery Method: HAND - Hand Delivered Emerald Days: Prior Verbal Notification: Recipient Understood Notice: Yes Recipient Signature: Yes Med Rec Note Co-signed by Attending: Coverage Notice Comment: [facility] OR [facility] RETIREMENT REHAB REFUSED: HOSPICE Reviewer: [id number] Jose Gallego Notice Issued Date-Time: 05/26/2019 13:05 Notice Type: Patient Choice Letter Notice Delivered To: Family Member Relationship to Patient: Daughter Human Resources Department Supervisor Name: SILVIANO UNDERWOOD Delivery Method: HAND - Hand Delivered Emerald Days: Prior Verbal Notification: Recipient Understood Notice: Yes Recipient Signature: Yes Med Rec Note Co-signed by Attending: Coverage Notice Comment: [facility] Reviewer: [id number] Jose Gallego Notice Issued Date-Time: 05/27/2019 16:30 Notice Type: Patient Choice Letter Notice Delivered To: Family Member Relationship to Patient: Daughter Human Resources Department Supervisor Name: SILVIANO UNDERWOOD Delivery Method: PHONE - Phone Emerald Days: Prior Verbal Notification: Recipient Understood Notice: Yes Recipient Signature: Med Rec Note Co-signed by Attending: Coverage [facility] Last DP export: 05/27/19 4:31 p Patient Name: ALEXANDRO TOMLINSON Page [id number] at 0845 All edits/amendments must be made on the electronic document DICTATION DATE: 05/28/19 0845 COAL MINER: GAMALIEL 05/28/19 0845 RPT#: [id number] DC DATE: STATUS: ADM IN [facility] [address] [place] [address] END OF REPORT
--- NOTE | 2019-05-28 08:52 | MORECARE ---
CASE MANAGEMENT DISCHARGE SUMMARY PATIENT: ALEXANDRO TOMLINSON UNIT: [id number] ADM DATE: 05/19/19 AGE: 83 : 34 SEX: F ROOM/BED: D.0857 AUTHOR: CHAU,DOC PHYSICIAN: REFERRING PHYSICIAN: IK DOYLE MD DATE OF SERVICE: 05/28/19 Discharge Plan Patient Name: ALEXANDRO TOMLINSON Facility: [facility]:[place] : 1935 Planned Disposition: Hospice Medical Facility Anticipated Discharge Date: 05/28/19 Discharge Date: Expected LOS: 9 Initial Reviewer: [id number] Initial Review Date: 05/25/2019 Generated: 05/28/19 9:51 am Comments DCP- Discharge Planning Updated by [email or web address]: Mone Gallego on 05/28/19 7:[address] Patient Name: ALEXANDRO TOMLINSON Encounter No: [id number] : 1935 Primary Insurance: MEDICARE A & B Anticipated DC Date: 05-28-2019 Planned Disposition: Hospice Medical Facility External Planned Provider: [facility] DCP follow-up note: CM SPOKE TO BEDSIDE NURSE WHO INFORMED CM THAT PT HAS HAD A DECLINE OVERNIGHT. CM CALLED AND SPOKE TO SILVIANO UNDERWOOD, DAUGHTER, WHO REPORTS SHE IS ON THE WAY TO THE HOSPITAL AND WOULD LIKE TO HAVE [facility] RE EVALUATE PT. SILVIANO WILL MAKE THE DECISION OF WHICH HOSPICE WHEN SHE ARRIVES. CM CALLED [facility], , LEFT MESSAGE FOR PAIGE WHO WILL CALL CM BACK IN ABOUT 20 MINUTES. CM WAITING ARRIVAL OF PT'S DAUGHTER TO HOSPITAL WHO WILL MAKE DECISION BETWEEN [facility] OR [facility]. MONE GALLEGO, CASE MANAGEMENT Mone Gallego Appended by Mone Gallego on 05/28/2019 8:46 CDT: CM RECEIVED CALL FROM PT'S DAUGHTER WHO ADVISED SHE DOES NOT WANT PT ON THE BIPAP, THAT PT DID NOT WANT TO WEAR IT WHEN SHE KNEW WHAT WAS GOING ON AND THEY WANT TO HONOR PT'S WISHES NOW. CM ADVISED THAT PT MAY IF NOT ON BIPAP, PT'S DAUGHTER REPORTS UNDERSTANDING AND STATES SHE IS STILL ON THE WAY AND WILL BE TO HOSPITAL SOON POSSIBLE. CM NOTIFIED BEDSIDE AND HAND II BLOCKER NURSE. MONE GALLEGO, CASE MANAGEMENT DCP- Discharge Planning Updated by [id number]: Mone Gallego on 05/27/19 4:[address] Patient Name: ALEXANDRO TOMLINSON Encounter No: [id number] : 1935 Primary Insurance: MEDICARE A & B Anticipated DC Date: 05-27-2019 Planned Disposition: Hospice Medical Facility External Planned Provider: [facility] DCP follow-up note: CM CALLED PT'S FAMILY AT [phone] SNF [id number]. THERE WAS NO ANSWER AT EITHER NUMBER. CM LATER RECEIVED CALL FROM SILVIANO UNDERWOOD, DAUGHTER. CM EXPLAINED THAT [facility] DID NOT FEEL PT TO BE APPROPRIATE FOR INPATIENT. CM DISCUSSED PLACEMENT IN CUSTODIAL OR HOSPICE JAIL FAMILY REPORTS INABILITY TO CARE FOR PT AT HOME. SILVIANO INFORMED CM THAT THE DOCTOR AT [facility] TOLD HER THAT PT ONLY HAS DAYS TO LIVE AND WANTS CM TO CALL [facility] SHE THINKS THEY CAN PROVIDE INPATIENT HOSPICE AND THEN CALL SILVIANO BACK. CM CALLED [facility], SPOKE TO FRAN AND DEBORA, BOTH OF WHICH INFORMED CM THAT THEY DO NOT DO INPATIENT HOSPICE AND REFERRED CM TO [facility] FOR CUSTODIAL HOSPICE CARE. CM CALLED SILVIANO BACK, , INFORMED HER OF THE ABOVE. CM ASKED FOR OLDEST CHILD'S CONTACT INFORMATION, SILVIANO STATES SHE HAS ONE OLDER BROTHER, JERSEY TOMLINSON WHO HAS NOTHING TO DO WITH PT AT ALL. SILVIANO DOES NOT WANT TO CONSIDER CUSTODIAL AT THIS TIME AND ASKED THAT PT BE EVALUATED BY [facility] FOR INPATIENT HOSPICE IN [place]. CHOICE COMPLETED. CM CALLED [facility], , SPOKE TO MARILYN AND PROVIDED REFERRAL FOR INPATIENT HOSPICE EVALUATION. MARILYN INFORMED CM THAT NURSE REMIGIO WILL EVALUATE PT SHORTLY. CM FAXED REFERRAL TO [facility] AT [phone], COPY OF REFERRAL AT DESK FOR REMIGIO WHEN HE ARRIVES. CM WAITING EVALUATION FROM [facility]. Mone Gallego, CASE MANAGEMENT Appended by Mone Gallego on 05/27/2019 17:21 CDT: CM SPOKE TO REMIGIO OF [facility], THEY WILL ACCEPT PT AND THE PT'S FAMILY CANNOT MAKE IT TO SIGN PAPERWORK UNTIL TOMORROW MORNING, 05-28-19. [facility] TO ACCEPT PT AFTER LEGALS ARE SIGNED TOMORROW, 05-28-19. CM WAITING LEGALS TO BE SIGNED BY PT'S FAMILY TOMORROW, 05-28-19. [facility] TO PROVIDE NUMBER FOR NURSE REPORT AND ROOM NUMBER ONCE ALL PAPERWORK IS COMPLETED BY FAMILY. MINI NUNN DCP- Discharge Planning Updated by [id number]: Mone Gallego on 05/26/19 3:[address] Patient Name: ALEXANDRO TOMLINSON Encounter No: [id number] : 1935 Primary Insurance: MEDICARE A & B Anticipated DC Date: 05-26-2019 Planned Disposition: Hospice Medical Facility External Planned Provider: [facility] AT [facility] DCP follow-up note: CM RECEIVED HOSPICE ORDER, SPOKE TO PT'S DAUGHTER, SILVIANO, WHO HAS SPOKEN WITH [facility] AND IS IN AGREEMENT WITH HOSPICE. PROVIDERS OF HOSPICE, LOCATIONS OF HOSPICE AND SERVICES DISCUSSED. SILVIANO WOULD LIKE TO KEEP PT AT [facility] FOR HOSPICE IF POSSIBLE. CHOICE SIGNED. IMPORTANT MESSAGE FROM MEDICARE PROVIDED AND EXPLAINED. CM CALLED [facility], , PROVIDED REFERRAL TO [facility] WHO WILL SEND NURSE OUT TO EVALUATE PT SHORTLY FOR INPATIENT HOSPICE. [phone]. CM WAITING HOSPICE EVALUATION FOR INPATIENT HOSPICE BY [facility]. Mone Gallego, CASE MANAGEMENT Appended by Mone Gallego on 05/26/2019 16:54 CDT: CM SPOKE TO NURSE CRAIG OF [facility], SHE HAS EVALUATED PT AND FOUND THAT PT IS NOT APPROPRIATE FOR INPATIENT HOSPICE AFTER CONSULTATION WITH DR. DURÁN. THEY WOULD BE ABLE TO ADMIT AT HOME OR CUSTODIAL. K[facility]ARA ASKED THAT [facility] BE RECONSUILTED FOR INPATIENT HOSPICE IF THERE IS A DECLINE IN PATIENTS CONDITION. PT'S DAUGHTER NOT HERE, CM TO FOLLOW UP WITH PT'S DAUGHTER SOON POSSIBLE REGARDING POSSIBLE CUSTODIAL PLACEMENT WITH HOSPICE. MINI NUNN DCP- Discharge Planning Updated by [id number]: Mone Gallego on 05/25/19 2:[address] Patient Name: ALEXANDRO TOMLINSON Admission Status: ER Accout number: [id number] Admission Date: 05-19-2019 : 1935 Admission Diagnosis: Attending: KATIE DOYLE Current LOS: 6 Anticipated DC Date: Planned Disposition: Inpatient Rehab Primary Insurance: MEDICARE A & B PLANNED EXTERNAL PROVIDER: [facility] Discharge Planning Comments: CM RECEIVED HOSPICE ORDER, MET WITH PT AND DAUGHTER IN ROOM TO DISCUSS DISCHARGE PLANNING AND NEEDS. PT HAVING BOWEL MOVEMENT, DAUGHTER ASKED TO SPEAK OUTSIDE ROOM. PT HAS BEEN LIVING AT HOME INDEPENDENTLY AND ALONE NEXT DOOR TO DAUGHTER. PT HAS NOT BEEN USING ANY MEDICAL EQUIPMENT. PT TAKES NO HOME MEDICATIONS. CM DISCUSSED PT'S NON COMPLIANCE WITH OXYGEN AND BIPAP AND ALSO DISCUSSED HOSPICE OPTIONS, LOCATIONS AND PROVIDERS. PT'S DAUGHTER REPORTS THAT SHE DOES NOT THINK THEY ARE READY FOR HOSPICE AND THAT SHE BELIEVES PT WILL GET BETTER AND MAY NEED REHAB. CM PROVIDED HOSPICE INFORMATION. PT'S DAUGHTER INFORMED CM THAT THEY ARE GOING TO TRY THE BIPAP AGAIN AND THAT PT IS JUST WANTING TO SLEEP NOW BUT IS RESPONDING VERBALLY TO THEM. CM DISCUSSED AVAILABILITY OF HOME HEALTH, REHAB SERVICES AND MEDICAL EQUIPMENT. PT'S DAUGHER IS THINKING OF REHAB AT [facility]; CM EXPLAINED THAT PT WILL NEED TO BE ABLE TO PARTICIPATE IN THREE HOURS OF PROGRESSIVE THERAPY FROM DAY OF ADMIT, SHE FEELS THAT PT WILL RECOVER AND BE ABLE TO DO SO. SECOND CHOICE IS [facility]. FAMILY PLANS TO TRANSPORT PT TO INPATIENT REHAB. CHOICE SIGNED FOR INPATIENT REHAB AT [facility]. REFUSAL FOR HOSPICE SIGNED. FAMILY IS NOT READY FOR HOSPICE AND FEELS THAT PT WILL COOPERATE WITH BIPAP, RECOVER AND BE ABLE TO GO TO INPATIENT REHAB OR RETIREMENT REHAB IN [place]. CM TO CONTINUE TO FOLLOW AND ASSIST NEEDED. Shade Hanger: Mone Gallego [facility] - Discharge Planning Initial Assessment Updated by [id number]: Mone Gallego on 05/25/19 3:15 pm * Is the patient Alert and Oriented? Yes * How many steps to enter\exit or inside your home? * PCP DR. ROSENBAUM * Pharmacy [facility] * Preadmission Environment Home Alone * ADLs Independent * Equipment None * Other Equipment [facility] - PROVIDER PREFERENCE * List name and contact numbers for known caregivers / representatives who currently or will assist patient after discharge: SILVIANO UNDERWOOD DTR, * Verbal permission to speak to the caregivers and representatives has been obtained from the patient. N/A * Community resources currently utilized None * Please name any agencies selected above. NONE * Additional services required to return to the preadmission environment? Yes * Can the patient safely return to the preadmission environment? Yes * Has this patient been hospitalized within the prior 30 days at any hospital? No Coverage Notice Reviewer: HARI Gallego Notice Issued Date-Time: 05/25/2019 14:35 Notice Type: Patient Choice Letter Notice Delivered To: Family Member Relationship to Patient: Daughter Line Helper Name: SILVIANO UNDERWOOD Delivery Method: HAND - Hand Delivered Emerald Days: Prior Verbal Notification: Recipient Understood Notice: Yes Recipient Signature: Yes Med Rec Note Co-signed by Attending: Coverage Notice Comment: [facility] OR [facility] RETIREMENT REHAB REFUSED: HOSPICE Reviewer: HARI Gallego Notice Issued Date-Time: 05/26/2019 13:05 Notice Type: Patient Choice Letter Notice Delivered To: Family Member Relationship to Patient: Daughter Line Helper Name: SLIVIANO UNDERWOOD Delivery Method: HAND - Hand Delivered Emerald Days: Prior Verbal Notification: Recipient Understood Notice: Yes Recipient Signature: Yes Med Rec Note Co-signed by Attending: Coverage Notice Comment: [facility] Reviewer: HARI Gallego Notice Issued Date-Time: 05/27/2019 16:30 Notice Type: Patient Choice Letter Notice Delivered To: Family Member Relationship to Patient: Daughter Line Helper Name: SILVIANO UNDERWOOD Delivery Method: PHONE - Phone Emerald Days: Prior Verbal Notification: Recipient Understood Notice: Yes Recipient Signature: Med Rec Note Co-signed by Attending: Coverage Notice Comment: [facility] Last DP export: 05/28/19 7:45 a Patient Name: ALEXANDRO TOMLINSON Page [id number] at 0852 All edits/amendments must be made on the electronic document DICTATION DATE: 05/28/19850 CARD GAME OPERATOR: GAMALIEL 05/28/19 0851 RPT#: [id number] DC DATE: STATUS: ADM IN [facility] [address] [place] [address] END OF REPORT
[2019-05-28 09:35] VITALS: BP 102/35
--- NOTE | 2019-05-28 09:58 | NUR ---
PT SAT ON 9L HFNC 75% AND PT NONRESPONSIVE PLACED PT ON 15L HFNC SAT INCREASED TO 84%. PLACED PT ON BIPAP AT 14/7 50% SAT INCREASED TO 94%. ALERTED NURSE AND NURSE ADVISED THAT PT WILL BE GOING TO [facility] TODAY. PTS DAUGHTER REFUSED PLACING PT ON BIPAP AND SWITCHED PT TO NBR AT 15L AND SAT 91%
--- NOTE | 2019-05-28 10:07 | NUR ---
HOSPICE HERE TO [facility] PT
--- NOTE | 2019-05-28 10:18 | MORECARE ---
CASE MANAGEMENT DISCHARGE SUMMARY PATIENT: ALEXANDRO TOMLINSON UNIT: [id number] ADM DATE: 05/19/19 AGE: 83 : 34 SEX: F ROOM/BED: D.9452 AUTHOR: JIM RITCHIE PHYSICIAN: REFERRING PHYSICIAN: KI DOYLE MD DATE OF SERVICE: 05/28/19 Discharge Plan Patient Name: ALEXANDRO TOMLINSON [facility] [facility] 1935 Planned Disposition: Hospice Medical Facility Anticipated Discharge Date: 05/28/19 Discharge Date: Expected LOS: 9 Initial Reviewer: [id number] Initial Review Date: 05/25/2019 Generated: 05/28/19 11:17 am Comments DCP- Discharge Planning Updated by [email or web address]: Mone Gallego on 05/28/19 9:[address] Patient Name: ALEXANDRO TOMLINSON Encounter No: [id number] : 1935 Primary Insurance: MEDICARE A & B Anticipated DC Date: 05-28-2019 Planned Disposition: Hospice Medical Facility External Planned Provider: [facility] DCP follow-up note: VANESSA FROM [facility] HERE, EVALUATED PT AND HAS SPOKEN TO DAUGHTER. DAUGHTER WANTS TO KEEP PT AT [facility] WITH [facility], DR. LUIS ARMANDO BANGURA. ANDERSON REGALADO NOTIFIED. BEDSIDE NURSE AND PRINTING PLATE SETTER NURSE NOTIFIED. CM CALLED AND NOTIFIED REMIGIO OF [facility]. PT TO ADMIT TO [facility] WHEN PT'S DAUGHTER ARRIVES TO SIGN LEGALS. Mone Gallego, MINI MCMAHON DCP- Discharge Planning Updated by [id number]: Mone Gallego on 05/28/19 7:[address] Patient Name: ALEXANDRO TOMLINSON Encounter No: [id number] : 1935 Primary Insurance: MEDICARE A & B Anticipated DC Date: 05-28-2019 Planned Disposition: Hospice Medical Facility External Planned Provider: [facility] VS [facility] DCP follow-up note: CM SPOKE TO BEDSIDE NURSE WHO INFORMED CM THAT PT HAS HAD A DECLINE OVERNIGHT. CM CALLED AND SPOKE TO SILVIANO UNDERWOOD, DAUGHTER, WHO REPORTS SHE IS ON THE WAY TO THE HOSPITAL AND WOULD LIKE CM TO HAVE [facility] RE EVALUATE PT. SILVIANO WILL MAKE THE DECISION OF WHICH HOSPICE WHEN SHE ARRIVES. CM CALLED [facility], , LEFT MESSAGE FOR PAIGE WHO WILL CALL CM BACK IN ABOUT 20 MINUTES. CM WAITING ARRIVAL OF PT'S DAUGHTER TO HOSPITAL WHO WILL MAKE DECISION BETWEEN [facility] OR [facility]. MONE GALLEGO, CASE MANAGEMENT Mone Gallego Appended by Mone Gallego on 05/28/2019 8:46 CDT: CM RECEIVED CALL FROM PT'S DAUGHTER WHO ADVISED SHE DOES NOT WANT PT ON THE BIPAP, THAT PT DID NOT WANT TO WEAR IT WHEN SHE KNEW WHAT WAS GOING ON AND THEY WANT TO HONOR PT'S WISHES NOW. CM ADVISED THAT PT MAY IF NOT ON BIPAP, PT'S DAUGHTER REPORTS UNDERSTANDING AND STATES SHE IS STILL ON THE WAY AND WILL BE TO HOSPITAL SOON POSSIBLE. CM NOTIFIED BEDSIDE AND PRINTING PLATE SETTER NURSE. MONE GALLEGO, CASE MANAGEMENT DCP- Discharge Planning Updated by [id number]: Mone Gallego on 05/27/19 4:[address] Patient Name: ALEXANDRO TOMLINSON Encounter No: [id number] : 1935 Primary Insurance: MEDICARE A & B Anticipated DC Date: 05-27-2019 Planned Disposition: Hospice Medical Facility External Planned Provider: [facility] DCP follow-up note: CM CALLED PT'S FAMILY AT [phone] SNF [phone]. THERE WAS NO ANSWER AT EITHER NUMBER. CM LATER RECEIVED CALL FROM SILVIANO UNDERWOOD, DAUGHTER. CM EXPLAINED THAT [facility] DID NOT FEEL PT TO BE APPROPRIATE FOR INPATIENT. CM DISCUSSED PLACEMENT IN DETENTION OR HOSPICE RETIREMENT FAMILY REPORTS INABILITY TO CARE FOR PT AT HOME. SILVIANO INFORMED CM THAT THE DOCTOR AT [facility] TOLD HER THAT PT ONLY HAS DAYS TO LIVE AND WANTS CM TO CALL [facility] plus SHE THINKS THEY CAN PROVIDE INPATIENT HOSPICE AND THEN CALL SILVIANO BACK. CM CALLED [facility], SPOKE TO FRAN AND DEBORA, BOTH OF WHICH INFORMED CM THAT THEY DO NOT DO INPATIENT HOSPICE AND REFERRED CM TO [facility] FOR DETENTION HOSPICE CARE. CM CALLED SILVIANO BACK, , INFORMED HER OF THE ABOVE. CM ASKED FOR OLDEST CHILD'S CONTACT INFORMATION, SILVIANO STATES SHE HAS ONE OLDER BROTHER, JERSEY TOMLINSON WHO HAS NOTHING TO DO WITH PT AT ALL. SILVIANO DOES NOT WANT TO CONSIDER DETENTION AT THIS TIME AND ASKED THAT PT BE EVALUATED BY [facility] FOR INPATIENT HOSPICE IN [place]. CHOICE COMPLETED. CM CALLED [facility], , SPOKE TO MARILYN AND PROVIDED REFERRAL FOR INPATIENT HOSPICE EVALUATION. MARILYN INFORMED CM THAT NURSE REMIGIO WILL EVALUATE PT SHORTLY. CM FAXED REFERRAL TO [facility] AT [phone], COPY OF REFERRAL AT DESK FOR REMIGIO WHEN HE ARRIVES. CM WAITING EVALUATION FROM [facility]. Mone Gallego, CASE MANAGEMENT Appended by Mone Gallego on 05/27/2019 17:21 CDT: CM SPOKE TO REMIGIO OF [facility], THEY WILL ACCEPT PT AND THE PT'S FAMILY CANNOT MAKE IT TO SIGN PAPERWORK UNTIL TOMORROW MORNING, 05-28-19. [facility] TO ACCEPT PT AFTER LEGALS ARE SIGNED TOMORROW, 05-28-19. CM WAITING LEGALS TO BE SIGNED BY PT'S FAMILY TOMORROW, 05-28-19. [facility] TO PROVIDE NUMBER FOR NURSE REPORT AND ROOM NUMBER ONCE ALL PAPERWORK IS COMPLETED BY FAMILY. MONE GALLEGO, CASE MANAGEMENT DCP- Discharge Planning Updated by [id number]: Mone Gallego on 05/26/19 3:[address] Patient Name: ALEXANDRO TOMLINSON Encounter No: [id number] : 1935 Primary Insurance: MEDICARE A & B Anticipated DC Date: 05-26-2019 Planned Disposition: Hospice Medical Facility External Planned Provider: [facility] AT [facility] DCP follow-up note: CM RECEIVED HOSPICE ORDER, SPOKE TO PT'S DAUGHTER, SILVIANO, WHO HAS SPOKEN WITH [facility] AND IS IN AGREEMENT WITH HOSPICE. PROVIDERS OF HOSPICE, LOCATIONS OF HOSPICE AND SERVICES DISCUSSED. SILVIANO WOULD LIKE TO KEEP PT AT [facility] FOR HOSPICE IF POSSIBLE. CHOICE SIGNED. IMPORTANT MESSAGE FROM MEDICARE PROVIDED AND EXPLAINED. CM CALLED [facility], , PROVIDED REFERRAL TO [facility] WHO WILL SEND NURSE OUT TO EVALUATE PT SHORTLY FOR INPATIENT HOSPICE. CM FAXED REFERRAL TO [facility] AT [phone]. CM WAITING HOSPICE EVALUATION FOR INPATIENT HOSPICE BY [facility]. Mone Gallego, CASE MANAGEMENT Appended by Mone Gallego on 05/26/2019 16:54 CDT: CM SPOKE TO NURSE CRAIG OF [facility], SHE HAS EVALUATED PT AND FOUND THAT PT IS NOT APPROPRIATE FOR INPATIENT HOSPICE AFTER CONSULTATION WITH DR. DURÁN. THEY WOULD BE ABLE TO ADMIT AT HOME OR DETENTION. [facility]ARA ASKED THAT [facility] BE RECONSUILTED FOR INPATIENT HOSPICE IF THERE IS A DECLINE IN PATIENTS CONDITION. PT'S DAUGHTER NOT HERE, CM TO FOLLOW UP WITH PT'S DAUGHTER SOON POSSIBLE REGARDING POSSIBLE DETENTION PLACEMENT WITH HOSPICE. MONE GALLEGO, CASE MANAGEMENT DCP- Discharge Planning Updated by [id number]: Mone Gallego on 05/25/19 2:[address] Patient Name: ALEXANDRO TOMLINSON Admission Status: ER Accout number: [id number] Admission Date: 05-19-2019 : 1935 Admission Diagnosis: Attending: KATIE DOYLE Current LOS: 6 Anticipated DC Date: Planned Disposition: Inpatient Rehab Primary Insurance: MEDICARE A & B PLANNED EXTERNAL PROVIDER: [facility] [facility] Discharge Planning Comments: CM RECEIVED HOSPICE ORDER, MET WITH PT AND DAUGHTER IN ROOM TO DISCUSS DISCHARGE PLANNING AND NEEDS. PT HAVING BOWEL MOVEMENT, DAUGHTER ASKED TO SPEAK OUTSIDE ROOM. PT HAS BEEN LIVING AT HOME INDEPENDENTLY AND ALONE NEXT DOOR TO DAUGHTER. PT HAS NOT BEEN USING ANY MEDICAL EQUIPMENT. PT TAKES NO HOME MEDICATIONS. CM DISCUSSED PT'S NON COMPLIANCE WITH OXYGEN AND BIPAP AND ALSO DISCUSSED HOSPICE OPTIONS, LOCATIONS AND PROVIDERS. PT'S DAUGHTER REPORTS THAT SHE DOES NOT THINK THEY ARE READY FOR HOSPICE AND THAT SHE BELIEVES PT WILL GET BETTER AND MAY NEED REHAB. CM PROVIDED HOSPICE INFORMATION. PT'S DAUGHTER INFORMED CM THAT THEY ARE GOING TO TRY THE BIPAP AGAIN AND THAT PT IS JUST WANTING TO SLEEP NOW BUT IS RESPONDING VERBALLY TO THEM. CM DISCUSSED AVAILABILITY OF HOME HEALTH, REHAB SERVICES AND MEDICAL EQUIPMENT. PT'S DAUGHER IS THINKING OF REHAB AT [facility]; CM EXPLAINED THAT PT WILL NEED TO BE ABLE TO PARTICIPATE IN THREE HOURS OF PROGRESSIVE THERAPY FROM DAY OF ADMIT, SHE FEELS THAT PT WILL RECOVER AND BE ABLE TO DO SO. SECOND CHOICE IS [facility]. FAMILY PLANS TO TRANSPORT PT TO INPATIENT REHAB. CHOICE SIGNED FOR INPATIENT REHAB AT [facility]. REFUSAL FOR HOSPICE SIGNED. FAMILY IS NOT READY FOR HOSPICE AND FEELS THAT PT WILL COOPERATE WITH BIPAP, RECOVER AND BE ABLE TO GO TO INPATIENT REHAB OR DETENTION REHAB IN [place]. CM TO CONTINUE TO FOLLOW AND ASSIST NEEDED. Wool Sorter: Mone Gallego DCPIA - Discharge Planning Initial Assessment Updated by [id number]: Mone Gallego on 05/25/19 3:15 pm * Is the patient Alert and Oriented? Yes * How many steps to enter\exit or inside your home? * PCP DR. ROSENBAUM * Pharmacy [facility] * Preadmission Environment Home Alone * ADLs Independent * Equipment None * Other Equipment [facility] - PROVIDER PREFERENCE * List name and contact numbers for known caregivers / representatives who currently or will assist patient after discharge: SILVIANO UNDERWOOD, DTR, * Verbal permission to speak to the caregivers and representatives has been obtained from the patient. N/A * Community resources currently utilized None * Please name any agencies selected above. NONE * Additional services required to return to the preadmission environment? Yes * Can the patient safely return to the preadmission environment? Yes * Has this patient been hospitalized within the prior 30 days at any hospital? No Coverage Notice Reviewer: [id number] Gallego Notice Issued Date-Time: 05/25/2019 14:35 Notice Type: Patient Choice Letter Notice Delivered To: Family Member Relationship to Patient: Daughter Sports Marketing Internship Name: SILVIANO UNDERWOOD Delivery Method: HAND - Hand Delivered [facility]: Prior Verbal Notification: Recipient Understood Notice: Yes Recipient Signature: Yes Med Rec Note Co-signed by Attending: Coverage Notice Comment: [facility] OR [facility]ION REHAB REFUSED: HOSPICE Reviewer: [id number] Gallego Notice Issued Date-Time: 05/26/2019 13:05 Notice Type: Patient Choice Letter Notice Delivered To: Family Member Relationship to Patient: Daughter [employer] Marketing Internship Name: SILVIANO UNDERWOOD Delivery Method: HAND - Hand Delivered [facility]: Prior Verbal Notification: Recipient Understood Notice: Yes Recipient Signature: Yes Med Rec Note Co-signed by Attending: Coverage Notice Comment: [facility] Reviewer: [id number] Jose Gallego Notice Issued Date-Time: 05/27/2019 16:30 Notice Type: Patient Choice Letter Notice Delivered To: Family Member Relationship to Patient: Daughter [employer] Marketing Internship Name: SILVIANO UNDERWOOD Delivery Method: PHONE - Phone [facility] [employer]: Prior Verbal Notification: Recipient Understood Notice: Yes Recipient Signature: Med Rec Note Co-signed by Attending: Coverage Notice Comment: [facility] Last DP export: 05/28/19 7:52 a Patient Name: ALEXANDRO TOMLINSON Page [id number] at 1018 All edits/amendments must be made on the electronic document DICTATION DATE: 05/28/19 1017 RUSSIAN LANGUAGE INSTRUCTOR: GAMALIEL 05/28/19 1017 RPT#: [id number] DC DATE: STATUS: ADM IN [facility] [address] [place] [address] END OF REPORT
--- NOTE | 2019-05-28 11:41 | NUR ---
DC GIVEN TO DAUGHTER PT BEING ADMIT TO IN PT HOSPITAL
[2019-05-29 03:07] LABS: ALPHA FETOPROTEIN -(TUMOR MRK) 1.3 ng/mL (0.0-8.3)
== END 2019-05-28 11:41 | disposition hospice, inpatient (51) | DRG 193 ==
LOC: D.ER 21:24 → D.M2 21:56
PROVIDERS: Family Medicine; Internal Medicine Hematology & Oncology; Internal Medicine Pulmonary Disease; ADMIT Emergency Medicine; ATTEND Emergency Medicine
DX: J18.9 Pneumonia, unspecified organism (principal); J96.22 Acute and chronic respiratory failure with hypercapnia; J96.21 Acute and chronic respiratory failure with hypoxia; G92 Toxic encephalopathy; E43 Unspecified severe protein-calorie malnutrition; R40.2344 Coma scale, best motor response, flexion withdrawal, 24 hours or more after hospital admission; J44.0 Chronic obstructive pulmonary disease with (acute) lower respiratory infection; J44.1 Chronic obstructive pulmonary disease with (acute) exacerbation; I50.30 Unspecified diastolic (congestive) heart failure; E86.0 Dehydration; K21.9 Gastro-esophageal reflux disease without esophagitis; K44.9 Diaphragmatic hernia without obstruction or gangrene; E66.01 Morbid (severe) obesity due to excess calories; Z68.35 Body mass index [BMI] 35.0-35.9, adult; N18.9 Chronic kidney disease, unspecified; D63.1 Anemia in chronic kidney disease; D50.9 Iron deficiency anemia, unspecified; E03.9 Hypothyroidism, unspecified; J34.1 Cyst and mucocele of nose and nasal sinus; Z87.891 Personal history of nicotine dependence; R40.2134 Coma scale, eyes open, to sound, 24 hours or more after hospital admission; R40.2234 Coma scale, best verbal response, inappropriate words, 24 hours or more after hospital admission

== ENCOUNTER 2019-05-28 12:46 | Inpatient (IN) | payer OTHER ==
[2019-05-21 13:43] VITALS: BMI 35.1
[~2019-05-28 12:46] MED LIST: SYNTHROID25 MCG PO
--- NOTE | 2019-05-28 18:40 | NUR ---
I have reviewed this patient and I concur with the Shift Assessment completed by the Licensed Practical Nurse today this shift.
--- NOTE | 2019-05-28 19:30 | NUR ---
REPORT RECIEVED AND ROUNDING COMPLETE. PATIENT LAYING IN BED IN IN LOW FOWLERS, PATIENT IS WEARING A NONREBREATHER WITH O2 AT 15L. RESP. 4 PER MIN. PATIENT IS A HOSPICE PATIENT. PATIENT IS UNRESPONSIVE. DNR ON THE CHART.
--- NOTE | 2019-05-29 00:11 | NUR ---
ENTERED PATIENT'S ROOM TO CHECK ON HER. PATIENT NOT BREATHING, HOSPICE NURSE HERE ON FLOOR, PRONOUNCED PATIENT.
--- NOTE | 2019-05-29 00:12 | NUR ---
DAUGHTER NOTIFIED, NOT COMING TO HOSPITAL, STATED RELEASE PATIENT TO [facility].
--- NOTE | 2019-05-29 02:58 | NUR ---
HOME HERE TO PICKUP BODY.
== END 2019-05-29 03:01 | DRG 951 ==
LOC: D.M2 12:46
PROVIDERS: ADMIT Legal Medicine; ATTEND Legal Medicine
DX: Z51.5 Encounter for palliative care (principal)